=== PATIENT | male | born 1975 ===

== ENCOUNTER 2023-01-29 22:45 | Emergency (ER) | payer MEDICAID, SELFPAY ==
[2023-01-29 22:55] VITALS: BP 132/83; PULSE 66; RESP 20; TEMP 36.8; O2SAT 97; BMI 26.6
[2023-01-29 23:10] LABS: MANUAL DIFF FLAG NO
[2023-01-29 23:12] LABS: Basophils Percent Auto 0.3 % (0-2); Eosinophils Absolute Auto 0.1 X10*3/uL (0.0-0.4); Eosinophils Percent Auto 1.3 % (0-4); Hematocrit 40.4 % (42.0-52.0); Hemoglobin 13.4 g/dl (14.0-18.0); Imm Gran Abs Auto 0.05 X10*3/uL (0.00-0.03); Imm Gran Pct Auto 0.5 % (0.0-0.4); Lymphocytes Percent Auto 18.9 % (20-40); Mean Corpuscular HGB Conc 33.2 g/dl (31.0-36.0); Mean Corpuscular Hemoglobin 29.7 pg (27.0-33.0); Mean Corpuscular Volume 89.6 fL (80.0-98.0); Mean Platelet Volume 8.6 fL (9.4-12.4); Monocytes Absolute Auto 0.8 X10*3/uL (0.1-1.2); Monocytes Percent Auto 7.7 % (2-11); Neutrophils Absolute Auto 7.4 x10*3/uL (2.0-8.3); Neutrophils Percent Auto 71.3 % (45-73); Platelet Count 202 X10*3/uL (160-400); Red Blood Count 4.51 X10*6/uL (4.60-5.80); Red Cell Distribution Width 13.2 % (11.0-16.0); White Blood Count 10.4 X10*3/uL (4.8-10.8)
[2023-01-29 23:23] LABS: IDNOW Serial# 08D9AD1C; Strep A Nucleic Acid Negative (Negative)
[2023-01-29 23:25] LABS: Anion Gap 12 (12-20); Blood Urea Nitrogen 16 mg/dL (9-16); Carbon Dioxide 25 mmol/L (22-29); Chloride 106 mmol/L (96-108); Creatinine Clr Calc Pharmacy 102.7; Estimated Glomerular Filt Rate > 60; Glucose Random 122 mg/dL (60-115); Potassium 3.7 mmol/L (3.3-5.1); Sodium 139 mmol/L (135-145)
[2023-01-29 23:36] LABS: COVID-19 Test Negative (Negative); IDNOW Serial# BCCEAD1C
--- NOTE | 2023-01-30 01:26 | ED_ITS ---
HPI - General Adult General Chief complaint: General Medical Stated complaint: coughing/sore throat Time Seen by Provider: 01/30/23 01:25 Source: patient and family Mode of arrival: ambulatory Limitations: language barrier (French speaking only, iPad japanese interpreter used) History of Present Illness HPI narrative: 47-year-old male who presents emergency department for evaluation of sore throat, subjective fever, chills, nonproductive cough, shortness of breath, and gagging with difficulty swallowing. The patient states that he has been sick since yesterday. He states that he feels like whenever he swallows a something in the back of his throat that causes him to choke and gag. He had subjective fever and chills. He is weak, tired and fatigued. He feels short of breath but denied dyspnea on exertion . He has a headache and body aches. He did not take any medications for symptoms. Related Data Previous Rx's Medication Instructions Recorded acetaminophen 500 mg tablet 500 mg PO Q6H PRN fever or pain 01/30/23 (Tylenol Extra Strength) #30 tabs prednisone 20 mg tablet 60 mg PO DAILY 5 days #15 tabs 01/30/23 Allergies Allergy/AdvReac Type Severity Reaction Status Date / Time No Known Allergies Allergy Verified 01/30/23 01:47 Review of Systems Review of Systems: Yes all other systems are reviewed and are negative [facility] Past Medical History [facility] Narrative: Past medical history: None. Past surgical history: Patient denies tobacco use. He occasionally drinks alcohol. He denies drug use. Physical Exam ED Vital Signs: Vital Signs - 24 hr 01/29/23 22:55 Temperature 98.2 F Pulse Rate 66 Respiratory Rate 20 Blood Pressure 132/83 Pulse Oximetry 97 Oxygen Delivery Method Room Air BMI result Body Mass Index 26.6 Const Other: Awake, alert, male patient, pleasant, cooperative. Does cough which causes him to gag. HENMT Head: Yes normal to inspection, Yes normocephalic and Yes atraumatic Ears: external ears normal General nose exam: Normal external nose present Face and sinus: Yes normal facial exam Mouth: lip normal, tongue normal, moist mucous membranes, no trismus and other (Uvula is long and thick, hangs down to just below his tongue) Throat: Yes posterior oropharynx normal Eyes General: appearance normal, both eyes and all related structures Neck Neck: Yes normal visual inspection, Yes no lymphadenopathy, Yes trachea midline and Yes supple Chest Chest palpation & inspection: normal inspection of the chest and normal palpation of entire chest wall Resp Effort & Inspection: normal respiratory effort and able to speak in complete sentences Auscultation: clear to auscultation bilaterally Cardio Rate: regular rate Rhythm: regular rhythm Heart sounds: S1 normal heart sound present, S2 normal heart sound present and no murmurs GI Inspection: Yes normal to inspection Palpation (GI): Soft to palpation, nontender and no guarding Auscultation: normal bowel sounds General: Yes no CVA tenderness Back/Spine/Pelvis Back: no CVA tenderness Skin General skin exam: no rashes or lesions noted Neuro Cognition (Neuro): normal cognition Motor exam (neuro): 5/5 motor strength present throughout Extrem General: Yes normal to inspection Psych Appearance: grossly normal Speech and movement: Normal speech and movement present Affect: normal affect Attitude: cooperative Medical Decision Making Medical Decision Making MDM Narrative: 47-year-old male who presents emergency department with viral-like illness x2 days with symptoms including subjective fever, chills, sore throat, nonproductive cough,, fatigue, myalgias, gagging when he coughs and swallows. Vital signs were normal. Examination did reveal a elongated and thick uvula consistent with uvulitis. Laboratory evaluation revealed a normal CBC and CMP. The patient's rapid strep was negative. The patient's COVID-19 was negative. I did discuss uvulitis and viral syndromes with the patient and the patient's family member. The patient was given prednisone 60 mg orally and Tylenol 650 mg orally here in the emergency department the. The patient was given a prescription for prednisone 60 mg once a day for 5 days. He was also advised to take Tylenol 1000 mg every 6 hours as needed for pain and fever. He was given printed and verbal instructions and discharged home. Lab Data 01/29/23 23:06 01/29/23 23:06 Labs: Lab Results 01/29/23 01/29/23 01/29/23 Range/Units 23:06 23:06 23:06 WBC 10.4 (4.8-10.8) X10*3/uL RBC 4.51 L (4.60-5.80) X10*6/uL Hgb 13.4 L (14.0-18.0) g/dl Hct 40.4 L (42.0-52.0) % MCV 89.6 (80.0-98.0) fL MCH 29.7 (27.0-33.0) pg MCHC 33.2 (31.0-36.0) g/dl RDW 13.2 (11.0-16.0) % Plt Count 202 (160-400) X10*3/uL MPV 8.6 L (9.4-12.4) fL Immature Gran % (Auto) 0.5 H (0.0-0.4) % Neut % (Auto) 71.3 (45-73) % Lymph % (Auto) 18.9 L (20-40) % Zavala % (Auto) 7.7 (2-11) % Eos % (Auto) 1.3 (0-4) % Baso % (Auto) 0.3 (0-2) % Lymph # (Auto) 2.0 (1.2-4.9) X10*3/uL Zavala # (Auto) 0.8 (0.1-1.2) X10*3/uL Eos # (Auto) 0.1 (0.0-0.4) X10*3/uL Baso # (Auto) 0.0 (0.0-0.2) X10*3/uL Abs Immat Gran (auto) 0.05 H (0.00-0.03) X10*3/uL Absolute Neuts (auto) 7.4 (2.0-8.3) x10*3/uL Absolute Nucleated RBC 0.000 (0.0-0.012) X10*3/uL Nucleated RBC % (auto) 0.0 (0.0-0.2) /100WBC Sodium (135-145) mmol/L Potassium (3.3-5.1) mmol/L Chloride (96-108) mmol/L Carbon Dioxide (22-29) mmol/L Anion Gap (12-20) BUN (9-16) mg/dL Creatinine (0.5-1.4) mg/dL Estim Creat Clear Calc Estimated GFR Random Glucose (60-115) mg/dL Calcium (8.4-10.2) mg/dL COVID-19 (ANTHONY) Negative (Negative) COVID-19 Clin Com See Note S. pyogenes GrpA GREG Negative (Negative) 01/29/23 Range/Units 23:06 WBC (4.8-10.8) X10*3/uL RBC (4.60-5.80) X10*6/uL Hgb (14.0-18.0) g/dl Hct (42.0-52.0) % MCV (80.0-98.0) fL MCH (27.0-33.0) pg MCHC (31.0-36.0) g/dl RDW (11.0-16.0) % Plt Count (160-400) X10*3/uL MPV (9.4-12.4) fL Immature Gran % (Auto) (0.0-0.4) % Neut % (Auto) (45-73) % Lymph % (Auto) (20-40) % Zavala % (Auto) (2-11) % Eos % (Auto) (0-4) % Baso % (Auto) (0-2) % Lymph # (Auto) (1.2-4.9) X10*3/uL Zavala # (Auto) (0.1-1.2) X10*3/uL Eos # (Auto) (0.0-0.4) X10*3/uL Baso # (Auto) (0.0-0.2) X10*3/uL Abs Immat Gran (auto) (0.00-0.03) X10*3/uL Absolute Neuts (auto) (2.0-8.3) x10*3/uL Absolute Nucleated RBC (0.0-0.012) X10*3/uL Nucleated RBC % (auto) (0.0-0.2) /100WBC Sodium 139 (135-145) mmol/L Potassium 3.7 (3.3-5.1) mmol/L Chloride 106 (96-108) mmol/L Carbon Dioxide 25 (22-29) mmol/L Anion Gap 12 (12-20) BUN 16 (9-16) mg/dL Creatinine 0.76 (0.5-1.4) mg/dL Estim Creat Clear Calc 102.7 Estimated GFR > 60 Random Glucose 122 H (60-115) mg/dL Calcium 9.0 (8.4-10.2) mg/dL COVID-19 (ANTHONY) (Negative) COVID-19 Clin Com S. pyogenes GrpA GREG (Negative) Discharge Plan Discharge Clinical Impression: Viral syndrome, Uvulitis Patient Disposition: Home, Self-Care Instructions: Uvulitis (ED), Viral Syndrome (ED) Additional Instructions: Your blood work was normal. Your COVID-19 test was negative. Your rapid strep test for strep throat was negative. Your examination revealed a long and wide uvula which is consistent with inflammation of the uvula (uvulitis). This is caused by a viral infection. Take prednisone 20 mg pills, 3 pills once a day for 5 days. While you are taking prednisone, do not take any NSAIDs (Motrin, Advil, ibuprofen, Aleve, naproxen). Take Tylenol (acetaminophen) 500 mg pills, 2 pills every 6 hours as needed for pain. Follow-up with your doctor in 2 days. Please return to the emergency department if your symptoms get worse or if you develop any symptoms that are concerning to you. Prescriptions: New prednisone 20 mg tablet 60 mg PO DAILY 5 Days Qty: 15 0RF acetaminophen [Tylenol Extra Strength] 500 mg tablet 500 mg PO Q6H PRN (Reason: fever or pain) Qty: 30 0RF Print Language: French
[2023-01-30 02:09] VITALS: BP 116/76; PULSE 62; RESP 18; TEMP 36.6; O2SAT 98
[2023-01-30] MEDS: Acetaminophen 325 MG TABLET 650 MG PO (02:26)
[2023-01-30] MEDS: predniSONE 20 MG TABLET 60 MG PO (02:26)
== END 2023-01-30 02:31 | disposition home or self-care (01) ==
PROVIDERS: Emergency Provider Emergency Medicine Emergency Medical Services
DX: K12.2 Cellulitis and abscess of mouth (principal); J02.9 Acute pharyngitis, unspecified; B34.9 Viral infection, unspecified; R05.9 Cough, unspecified; Z20.822 Contact with and (suspected) exposure to COVID-19; Z20.828 Contact with and (suspected) exposure to other viral communicable diseases; Z79.899 Other long term (current) drug therapy
CPT/HCPCS: 36415; 80048; 85025; 87635; 87651; 99283

== ENCOUNTER 2023-03-14 13:21 | Emergency (ER) | payer OTHER, SELFPAY ==
--- NOTE | ~2023-03-14 | XR_ITS ---
EXAMINATION: XR HIP, RIGHT CLINICAL INFORMATION: Increasing hip pain COMPARISON: None available. TECHNIQUE: 2 views of the right hip and single view pelvis of the right hip. FINDINGS: The pelvic image demonstrates abnormality in the right femoral head/right hip. The left femoral head contour is within normal limits on this single image. The SI joints are grossly patent. Detailed imaging of the right hip demonstrates abnormal appearance to the right hip. Abnormal femoral head contour and significant near complete joint space loss mid and inferior and posterior. Sclerosis and lucency in the region may represent sequela of degeneration and geode formation. Underlying chronic infection cannot be excluded. XR/XR hip RT w PEL1V IMPRESSION: Markedly abnormal right hip may be severe degeneration. Cannot exclude sequela of chronic infection or possibly osteonecrosis. Correlation recommended clinically. Recommend MRI to fully evaluate.
[2023-03-14 13:25] VITALS: BP 132/97; PULSE 66; RESP 19; TEMP 36.4; O2SAT 98; BMI 40.6
[2023-03-14 13:41] VITALS: BP 126/77; PULSE 64; RESP 16; O2SAT 96
[2023-03-14] MEDS: Acetaminophen 325 MG TABLET 975 MG PO (14:25)
[2023-03-14] MEDS: Ketorolac Tromethamine 15 MG/ML VIAL IM (14:25)
[2023-03-14] MEDS: Lidocaine 4 % Patch ADH..PATCH 1 PATCH TRANSDERMA (14:25)
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
== END 2023-03-14 16:55 | disposition home or self-care (01) ==
PROVIDERS: Emergency Provider Student in an Organized Health Care Education/Training Program
DX: M16.11 Unilateral primary osteoarthritis, right hip (principal); M25.551 Pain in right hip
CPT/HCPCS: 73502; 99284; J1885

== ENCOUNTER → 2023-03-15 10:22 | Outpatient (BNVA) | payer OTHER, SELFPAY | PROVIDERS: Visit Provider Orthopaedic Surgery | DX: M87.051 Idiopathic aseptic necrosis of right femur (principal) | CPT/HCPCS: 99202 ==

== ENCOUNTER → 2023-04-04 09:42 | Outpatient (BNVA) | payer OTHER, SELFPAY | PROVIDERS: Visit Provider Orthopaedic Surgery | DX: M87.051 Idiopathic aseptic necrosis of right femur (principal) | CPT/HCPCS: 99212 ==

== ENCOUNTER 2023-04-17 14:58 | Outpatient (REF) | payer OTHER, SELFPAY ==
--- NOTE | ~2023-04-17 | MR_ITS ---
EXAMINATION: MR HIP WITHOUT CONTRAST, RIGHT CLINICAL INFORMATION: Osteoarthritis. Avascular necrosis. COMPARISON: Radiograph dated 03/14/2023. TECHNIQUE: MRI of the right hip was obtained using routine sequences on a high-field strength magnet. FINDINGS: LABRUM/CAPSULE: There is degeneration of the anterior labrum with intermediate increased intrasubstance signal and fraying. No discrete tears are identified. BONES AND ARTICULAR CARTILAGE: There is moderate to high-grade cartilage loss at the acetabulum anteriorly and medially and at the femoral head anterosuperiorly, associated with cortical irregularity, subcortical cystic change, and subcortical edema. Marginal osteophytes are noted. No evidence of avascular necrosis. Abnormal cortical and trabecular morphology at the medial aspect of the humeral head are of uncertain etiology, potentially the result of an old healed fracture or developmental variation. No aggressive osseous lesions. Pubic symphysis and SI joints are unremarkable. No acute osseous findings. MUSCLES AND TENDONS: Musculature is normal in signal intensity without atrophy or edema signal. Tendons appear intact. No tears or tendinosis. JOINT FLUID AND BURSAE: No effusion or bursitis. LIGAMENTUM TERES: Intact. INTRAPELVIC SOFT TISSUES: No acute intrapelvic findings. No adenopathy. MR/MR hip RT wo con IMPRESSION: Moderate osteoarthritis in the right hip with degeneration of the anterior labrum. No evidence of avascular necrosis. Abnormal cortical and trabecular morphology at the inferomedial aspect of the humeral head could be due to remote trauma or developmental variation.
== END 2023-04-17 14:59 | disposition home or self-care (01) ==
LOC: HO.MRI 14:58
PROVIDERS: Visit Provider Orthopaedic Surgery
DX: M16.11 Unilateral primary osteoarthritis, right hip (principal); M87.051 Idiopathic aseptic necrosis of right femur
CPT/HCPCS: 73721

== ENCOUNTER → 2023-05-21 09:58 | Outpatient (BNVA) | payer OTHER, SELFPAY | PROVIDERS: Visit Provider Orthopaedic Surgery ==

== ENCOUNTER → 2023-06-17 13:22 | Outpatient (BNV) | payer OTHER, SELFPAY | PROVIDERS: Admitting Provider Orthopaedic Surgery; Visit Provider Internal Medicine Cardiovascular Disease | DX: Z01.818 Encounter for other preprocedural examination (principal) | CPT/HCPCS: 93010 ==

== ENCOUNTER 2023-06-21 10:00 | Outpatient (RCR) | payer OTHER, SELFPAY ==
--- NOTE | 2023-06-14 10:06 | MHC.PT.EP ---
[facility] [place] [facility] [place] [facility] [place] Office [address] [place] [address] [phone] F: [phone] F: [phone] F: [phone] F: [phone] Physical Therapy Plan of Care Date of Evaluation: Date of Surgery: 06/25/23 Diagnosis: prehab for R LOLI on 07/02 (RL) Assessment: pt is a 53 y/o female presenting to physical therapy w/ referring diagnosis of prehab for RT LOLI 07/02. Impairments include pain, decreased range of motion, decreased strength, impaired functional mobility, impaired postural awareness, and altered ambulation mechanics. pt is a good candidate for skilled PT due to age, potential remediation of impairments, typical disease/condition progression and prognosis, comorbidities, and motivation. pt would benefit from skilled PT intervention to provide a tailored strengthening and stretching exercise program, functional training, gait training, postural re-training, neuromuscular re-education, modalities as needed for pain, equipment safety demonstration. Frequency and Duration: The patient will be seen 2-3 visits Short Term Goals: pt will demo mod I w/ step to gait pattern w/ walker. pt will demo mod I w/ ascending/descending stairs w/ step to pattern and correct LE 10-12 steps. [employer] Goals: pt will demo bed mobility being mindful of posterior hip precautions mod I level. pt will be I w/ HEP to promote self-management of future post-operative status. Treatment Plan: Modalities to reduce pain, spasms and effusion. Manual therapy to restore motion and function. Therapeutic exercise to improve strength and flexibility. Neuromuscular re-education for posture and balance. Therapeutic activities to return to functional activities of daily living. Electronically signed by: Kayla Marion PT, DPT Please sign and return to therapist. Thank you for your referral.
--- NOTE | 2023-06-26 15:23 | MHC.PT.DC ---
[facility] [place] Office [place] Office [place] Office [address] Galindo Cruz [address] [facility] [phone] F: [phone] F: [phone] F: [phone] F: [phone] Physical Therapy Discharge Report Diagnosis: prehab for R LOLI on 07/02 (RL) Date of Surgery: 06/25/23 Date of Evaluation: 06/14/23 Date of Discharge: 06/26/23 Treatments to Date: 3 Cancellations to Date: 1 No Shows to Date: 0 Discharge Status: Independent with HEP Discharge Summary: The patient completed his LOLI prehab plan of care. Electronically signed by: Kayla Marion PT, DPT Please sign and return to therapist. Thank you for your referral.
== END 2023-06-26 15:23 | disposition home or self-care (01) ==
LOC: HO.PT 10:00
PROVIDERS: Visit Provider Orthopaedic Surgery
DX: M87.051 Idiopathic aseptic necrosis of right femur (principal)
CPT/HCPCS: 97110; 97116; 97161

== ENCOUNTER 2023-06-21 11:03 | Outpatient (AMB) | payer OTHER, SELFPAY ==
--- NOTE | 2023-06-21 11:20 | A.OFFVIS_ITS ---
Intake Intake Visit Reasons: Preop RT LOLI 06/25/23 NE Allergies No Known Allergies Allergy (Verified 01/30/23 01:47) HPI Preop RT LOLI 06/25/23 NE HPI Details Jovany Vargas is a 47-year-old Italian speaking male who returns with right hip arthralgia. He presents for his preoperative history and physical exam to discuss the right total hip arthroplasty, to be performed on 06/25/2023. [facility] Medical History No pertinent past medical history Surgical History History of surgery on left wrist Hx of appendectomy Social History Household Members: Other Housing: Apartment Are you a primary hearing care professional to a significant other at home: No Do you presently have visiting nurse or other home services: No Alcohol intake: never Patient Tobacco Use Status: Never used Tobacco Second Hand Smoke Exposure: No service: No Review of Systems Const All systems reviewed & are unremarkable except as noted in HPI and below Physical Exam Const General: cooperative, healthy appearing and no acute distress Orientation/consciousness: patient oriented x3 Resp Effort & Inspection: normal respiratory effort and able to speak in complete sentences Cardio Rate: regular rate Peripheral pulses: Peripheral pulses 2+ throughout GI Palpation (GI): Soft to palpation Skin General skin exam: no rashes or lesions noted Lesions: no lesions Rashes: no rashes Neuro General: patient oriented x3 Extrem Other: Right hip: Antalgic gait. Positive impingement. Positive Stinchfield test. Results Reviewed Results Reviewed: I personally reviewed relevant radiographs. MR HIP WITHOUT CONTRAST, RIGHT CLINICAL INFORMATION: Osteoarthritis. Avascular necrosis. COMPARISON: Radiograph dated 03/14/2023. ? TECHNIQUE: MRI of the right hip was obtained using routine sequences on a high-field strength magnet. FINDINGS: LABRUM/CAPSULE: There is degeneration of the anterior labrum with intermediate increased intrasubstance signal and fraying. No discrete tears are identified. BONES AND ARTICULAR CARTILAGE: There is moderate to high-grade cartilage loss at the acetabulum anteriorly and medially and at the femoral head anterosuperiorly, associated with cortical irregularity, subcortical cystic change, and subcortical edema. Marginal osteophytes are noted. No evidence of avascular necrosis. Abnormal cortical and trabecular morphology at the medial aspect of the humeral head are of uncertain etiology, potentially the result of an old healed fracture or developmental variation. No aggressive osseous lesions. Pubic symphysis and SI joints are unremarkable. No acute osseous findings. MUSCLES AND TENDONS: Musculature is normal in signal intensity without atrophy or edema signal. Tendons appear intact. No tears or tendinosis. JOINT FLUID AND BURSAE: No effusion or bursitis. LIGAMENTUM TERES: Intact. INTRAPELVIC SOFT TISSUES: No acute intrapelvic findings. No adenopathy. MR/MR hip RT wo con IMPRESSION: Moderate osteoarthritis in the right hip with degeneration of the anterior labrum. No evidence of avascular necrosis. Abnormal cortical and trabecular morphology at the inferomedial aspect of the humeral head could be due to remote trauma or developmental variation. Assessment & Plan Assessment & Plan (1) Avascular necrosis of bone of right hip: Code(s): M87.051 - Idiopathic aseptic necrosis of right femur Plan: He feels limited in their ADLs and that their QOL is diminished. I recommend a right total hip arthroplasty. I discussed the risks, benefits, and alternatives including, but not limited to, the risk of pain, infection, stiffness, need for further surgery as well as potential medical complications such as blood clots, pulmonary embolism and cardiac complications. I discussed the recovery timeline and process as well as the importance of PT. He is a good candidate for this surgery, and he/she wishes to proceed with this decision. Follow up with at his post operative appointment, or sooner if needed. Patient Instructions: Scribed for Dr. Ifeanyi Hayden by Madeline Griffith, medical officer psychiatry, on 06/11/2023 at 11:20 am, EST. Coding Level of Care Code Global (39975) Diagnoses Avascular necrosis of bone of right hip M87.051
== END 2023-06-21 11:45 | disposition home or self-care (01) ==
PROVIDERS: Visit Provider Orthopaedic Surgery
DX: M87.051 Idiopathic aseptic necrosis of right femur (principal)
CPT/HCPCS: 99024

== ENCOUNTER → 2023-06-21 11:03 | Outpatient (BNVA) | payer OTHER, SELFPAY | PROVIDERS: Visit Provider Orthopaedic Surgery ==

== ENCOUNTER 2023-06-25 06:07 | Inpatient (IN) | payer OTHER, SELFPAY ==
--- NOTE | 2023-06-17 | ECG_ITS ---
Test Reason : PREOP Blood Pressure : / mmHG Vent. Rate : 067 BPM Atrial Rate : 067 BPM P-R Int : 184 ms QRS Dur : 118 ms QT Int : 398 ms P-R-T Axes : 043 -05 004 degrees QTc Int : 420 ms Normal sinus rhythm Normal ECG No previous ECGs available Referred By: Sheeba Hyman Electronically Signed By:LE MENJIVAR MD
[2023-06-17 07:37] VITALS: BMI 40.6
[2023-06-17 12:15] VITALS: BMI 29.6
[2023-06-17 12:26] VITALS: BP 137/81; PULSE 55; RESP 16; O2SAT 98
--- NOTE | 2023-06-17 12:45 | P.CONAN_ITS ---
Documented by User: Sheeba Hyman NP 06/17/23 14:36 HPI - Anesthesia Eval Consult details Narrative: 47yo M for Right Hip Total Replacement Otherwise healthy No recent illness No CP/SOB with >4mets PMFSH Active Problems Active Problems: All Active Problems (Updated 06/17/23 @ 12:09 by Abi Ellis RN) Osteoarthritis of right hip (Acute) Avascular necrosis of bone of right hip (Acute) Past Medical History Medical History (Updated 06/17/23 @ 12:09 by Abi Ellis RN) No pertinent past medical history Surgical History Surgical History (Updated 06/17/23 @ 12:36 by Abi Ellis RN) History of surgery on left wrist Hx of appendectomy Social History Social History Household Members: Other Housing: Apartment Are you a primary director of patient care to a significant other at home: No Do you presently have visiting nurse or other home services: No Alcohol intake: never Patient Tobacco Use Status: Never used Tobacco Smoked in Last 30 Days: No Patient Interested in Nicotine Replacement: No Patient Given Instructions on How to Stop Smoking: No Second Hand Smoke Exposure: No Use of substances other than those prescribed or required for medical reasons: No Currently Displaying Signs/Symptoms of Drug Intoxication Withdrawal: No Any prior treatment program specific to substance use: No Have you been hit, kicked, punched, or otherwise hurt by someone within the past year? If so, by whom?: No Do you feel safe in your current relationship?: Yes Is there a partner from a previous relationship who is making you feel unsafe now?: No Are you made to feel afraid or neglected: No Are you DNR?: No Advance Directives: No Advance Directives Information Provided: No Advance Directives on File: No Do you have thoughts of harming others: None Do you have a plan to hurt others: No Plan Recently lost weight without trying: No Eating poorly because of decreased appetite: No Nutrition Risks: No Nutritional Risk Poor oral hygiene: No Meds Allergies Allergy/AdvReac Type Severity Reaction Status Date / Time No Known Allergies Allergy Verified 01/30/23 01:47 Exam Exam Date and Time: June 17, 2023 1245 Height,Weight and Vital Signs: Height 5 ft 1 in Weight 80.739 kg Last Vital Signs Pulse 55 06/17/23 12:26 Resp 16 06/17/23 12:26 BP 137/81 06/17/23 12:26 Pulse Ox 98 06/17/23 12:26 O2 Del Method Room Air 06/17/23 12:26 Airway Mallampati Class: III TM Dist: >3cm Neck ROM: Full Loose/Missing/Broken Teeth: No (crowned front upper teeth) Heart: RRR Lungs: CTAB Assessment and Plan Assessment Anesthesia Assessment: Anesthesia Plan Discussed and PAT Visit Documented by User: Jean Banks MD 06/25/23 17:41 REPLACED BY [facility] Past Medical History Medical History (Updated 06/17/23 @ 12:09 by Abi Ellis RN) No pertinent past medical history Functional capacity: independent ambulation Family History Family history of problems with anesthesia: No Surgical History Surgical History (Updated 06/17/23 @ 12:36 by Abi Ellis RN) History of surgery on left wrist Hx of appendectomy History of Problems with Anesthesia: No Social History Social History Household Members: Other Housing: Apartment Are you a primary director of patient care to a significant other at home: No Do you presently have visiting nurse or other home services: No Alcohol intake: never Patient Tobacco Use Status: Never used Tobacco Smoked in Last 30 Days: No Patient Interested in Nicotine Replacement: No Patient Given Instructions on How to Stop Smoking: No Second Hand Smoke Exposure: No Use of substances other than those prescribed or required for medical reasons: No Currently Displaying Signs/Symptoms of Drug Intoxication Withdrawal: No Any prior treatment program specific to substance use: No Have you been hit, kicked, punched, or otherwise hurt by someone within the past year? If so, by whom?: No Do you feel safe in your current relationship?: Yes Is there a partner from a previous relationship who is making you feel unsafe now?: No Are you made to feel afraid or neglected: No Are you DNR?: No Advance Directives: No Advance Directives Information Provided: No Advance Directives on File: No Do you have thoughts of harming others: None Do you have a plan to hurt others: No Plan Recently lost weight without trying: No Eating poorly because of decreased appetite: No Nutrition Risks: No Nutritional Risk Poor oral hygiene: No Meds Allergies Allergy/AdvReac Type Severity Reaction Status Date / Time No Known Allergies Allergy Verified 01/30/23 01:47 Exam Airway Loose/Missing/Broken Teeth: Yes (left molar chipped , crowns ) Assessment and Plan Final Anesthetic Review Family History of Problems with Anesthesia: No History of Problems with Anesthesia: No NPO: Yes ASA Class: II Final Preanesthetic Review: Meds/Allgs Chart Reviewed, Consent Obtained/Reviewed and Anes Risks/Benef Reviewed Patient Risk: Intermediate Procedure Risk: Intermediate Anesthetic Plan Anesthetic Plan: GA Disposition: Standard PACU
[2023-06-17 14:21] LABS: Hematocrit 46.8 % (42.0-52.0); Hemoglobin 15.3 g/dl (14.0-18.0); Mean Corpuscular HGB Conc 32.7 g/dl (31.0-36.0); Mean Corpuscular Hemoglobin 29.7 pg (27.0-33.0); Mean Corpuscular Volume 90.9 fL (80.0-98.0); Mean Platelet Volume 9.2 fL (9.4-12.4); Platelet Count 236 X10*3/uL (160-400); Red Blood Count 5.15 X10*6/uL (4.60-5.80); Red Cell Distribution Width 13.5 % (11.0-16.0); White Blood Count 9.8 X10*3/uL (4.8-10.8)
[2023-06-17 17:03] LABS: MRSA Nasal PCR NEGATIVE (Negative); SA Nasal PCR POSITIVE (Negative)
[2023-06-18 01:38] LABS: Anion Gap 12 (12-20); Blood Urea Nitrogen 13 mg/dL (9-16); Calcium 9.1 mg/dL (8.4-10.2); Carbon Dioxide 25 mmol/L (22-29); Chloride 106 mmol/L (96-108); Creatinine Clr Calc Pharmacy 107.7; Estimated Glomerular Filt Rate > 60; Glucose Random 88 mg/dL (60-115); Potassium 3.7 mmol/L (3.3-5.1); Sodium 139 mmol/L (135-145)
[2023-06-25] VITALS (10 sets, daily range): BP systolic 104–147; BP diastolic 63–92; PULSE 60–94; RESP 16–20; TEMP 36–36.3; O2SAT 95–100; BMI 31.7; BMI 37.8
--- NOTE | ~2023-06-25 | XR_ITS ---
EXAMINATION: XR PELVIS CLINICAL INFORMATION: Right hip replacement COMPARISON: Previous x-ray March 2023 TECHNIQUE: AP view of the pelvis. FINDINGS: There is a new right hip replacement in satisfactory position. No fracture or dislocation. Postsurgical changes to the soft tissues. XR/XR pelvis 1-2V IMPRESSION: Satisfactory appearance of right hip replacement.
[2023-06-25] MEDS: oxyCODONE HCl ER 10 MG TAB.ER.12H PO ×3 (06:35→21:32)
[2023-06-25] MEDS: Lactated Ringers 1,000 ML 100 ML IVCONT ×3 (06:59→21:20)
--- NOTE | 2023-06-25 07:24 | MHC.SHP ---
Pre-Procedural Eval Section A Date of Service: 06/25/23 The patient is an INPATIENT: No Changes since office visit: No Cold of Flu in the past 2 weeks, No New Medical Problems, No Changes in Medication and No Patient answered all questions The History & Physical has been completed within 30 days and I have reviewed it.: Yes Section B Chief Complaint: RT LOLI Allergies: Allergies Allergy/AdvReac Type Severity Reaction Status Date / Time No Known Allergies Allergy Verified 01/30/23 01:47 Plan I have reviewed the history and physical and performed a pertinent physical examination on my patient. No changes have occurred unless specified. Time Spent With Patient Time: Total time managing care of this patient today ____ minutes.
--- NOTE | 2023-06-25 08:26 | PHA.MEDREC ---
Pharmacy Consult ? Medication Reconciliation Pharmacy has completed the medication reconciliation.
--- NOTE | 2023-06-25 11:30 | PC.NURSE ---
[place] from pricing analyst services utilize to do admission data
--- NOTE | 2023-06-25 11:45 | PM.EVENT ---
Event Note Date of Service: 06/25/23 Event Note: [age] year male without any significant past medical history admitted to Orthopedic surgery for management of avascular necrosis of the right hip with consult placed to hospitalist service for medical management. The patient has no medical history and is not prescribed any medications. He feels he is doing well, pain is reasonably controlled. Vital signs are stable and he is being weaned from supplemental O2 currently maintaining oximetry 100%. Lungs are clear to auscultation bilaterally, heart has regular rate and rhythm with normal S1-S2. He has no complaints at this time. He has only an occasional alcohol drinker and reports smoking 1 cigarette per year. Advised against this. No illicit drug use. Thank you for allowing me to participate in this consult. Signing off at this time. Please do not hesitate to call for further questions. Time Spent With Patient Time: Total time managing care of this patient today ____ minutes.
[2023-06-25] MEDS: Docusate Sodium 100 MG CAPSULE PO ×2 (11:46→21:32)
[2023-06-25] MEDS: Celecoxib 200 MG CAPSULE PO ×2 (11:46→21:32)
[2023-06-25] MEDS: 0.9 % Sodium Chloride Flush 3 ML SYRINGE IVFLUSH (11:49)
--- NOTE | 2023-06-25 12:10 | PM.OP ---
Brief Operative Note Date of Service: 06/25/23 Pre-op diagnosis: Right hip OA Post-op diagnosis: same Procedure: Right LOLI Implants: [place] Trident2 52/lip liner Stdimitris Acckimde2 # 4 127 deg with - 2.5 head, ceramic Surgeon: Ifeanyi Hayden MD Anesthesia: GETA Was an Solution Consultant used for this Procedure?: Yes Solution Consultant: Xi Orourke Estimated blood loss (mL): 200 IV fluids (mL): 1,000 Pathology: other Condition: stable Disposition: PACU
[2023-06-25] MEDS: ceFAZolin Sodium/Dextrose,Iso 2 GM/50 ML PIGGYBACK IV (13:44)
[2023-06-25] MEDS: HYDROmorphone HCl 0.5 MG/0.5 ML SYRINGE 0.25 MG IVPUSH (19:40)
[2023-06-26 03:10] VITALS: BP 95/56; PULSE 75; RESP 18; TEMP 36.6; O2SAT 97
[2023-06-26 03:36] VITALS: BP 104/62
[2023-06-26 05:56] LABS: MANUAL DIFF FLAG NO
[2023-06-26 05:59] LABS: Basophils Percent Auto 0.2 % (0-2); Eosinophils Percent Auto 0.1 % (0-4); Hematocrit 36.9 % (42.0-52.0); Hemoglobin 12.1 g/dl (14.0-18.0); Imm Gran Abs Auto 0.08 X10*3/uL (0.00-0.03); Imm Gran Pct Auto 0.5 % (0.0-0.4); Lymphocytes Absolute Auto 1.7 X10*3/uL (1.2-4.9); Lymphocytes Percent Auto 11.3 % (20-40); Mean Corpuscular HGB Conc 32.8 g/dl (31.0-36.0); Mean Corpuscular Hemoglobin 29.3 pg (27.0-33.0); Mean Corpuscular Volume 89.3 fL (80.0-98.0); Mean Platelet Volume 9.4 fL (9.4-12.4); Monocytes Absolute Auto 1.4 X10*3/uL (0.1-1.2); Monocytes Percent Auto 9.3 % (2-11); Neutrophils Absolute Auto 11.8 x10*3/uL (2.0-8.3); Neutrophils Percent Auto 78.6 % (45-73); Platelet Count 201 X10*3/uL (160-400); Red Blood Count 4.13 X10*6/uL (4.60-5.80); Red Cell Distribution Width 13.3 % (11.0-16.0)
[2023-06-26 06:12] LABS: Anion Gap 10 (12-20); Blood Urea Nitrogen 14 mg/dL (9-16); Calcium 8.8 mg/dL (8.4-10.2); Carbon Dioxide 24 mmol/L (22-29); Chloride 105 mmol/L (96-108); Creatinine Clr Calc Pharmacy 122.2; Estimated Glomerular Filt Rate > 60; Glucose Fasting 120 mg/dL (60-99); Potassium 3.8 mmol/L (3.3-5.1); Sodium 135 mmol/L (135-145)
[2023-06-26] MEDS: Lactated Ringers 1,000 ML 100 ML IVCONT ×2 (06:39→16:07)
--- NOTE | 2023-06-26 07:18 | PM.PNORT ---
Subjective Subjective Date of Service: 06/26/23 Interval history: POD1 s/p RTHA. Patient is resting in bed comfortably. no overnight events. Pain is managed. No additional complaints. Physical Exam Vital Signs: Vital Signs: Last Vital Signs Temp 97.9 F 06/26/23 03:10 Pulse 75 06/26/23 03:10 Resp 18 06/26/23 03:10 BP 104/62 06/26/23 03:36 Pulse Ox 97 06/26/23 03:10 O2 Del Method Room Air 06/26/23 03:10 O2 Flow Rate 2 06/25/23 10:56 BMI result Body Mass Index 37.8 Const: General: cooperative, healthy appearing and no acute distress Resp: Effort & Inspection: normal respiratory effort and able to speak in complete sentences Cardio: Rate: regular rate Peripheral pulses: Peripheral pulses 2+ throughout GI: Palpation (GI): Soft to palpation Skin: Lesions: no lesions Rashes: no rashes Extrem: Other: Right hip Aquacel is c/d/i. Able to dorsi/plantar flex. NVI. Procedures Date of Service Date of Service: 06/26/23 Progress Note: A&P Assessment and plan (1) Status post total replacement of right hip: Status: Acute Plan Continue pain mgmnt BeginASA for dvt ppx begin PT for RTHA - Posterior precautions Dispo planning-Pending PT eval, pain mgmnt Time Spent With Patient Time: Total time managing care of this patient today ____ minutes. Quality Stroke Does the patient have a stroke diagnosis?: No VTE Prior VTE?: No VTE Risk Level:: Medical - moderate - high VTE Device Contraindication: N/A - Device Ordered VTE Drug Contraindication: N/A - Med Ordered
[2023-06-26 07:21] VITALS: BP 107/55; PULSE 69; RESP 18; TEMP 36.3; O2SAT 97
[2023-06-26] MEDS: Aspirin 325 MG TABLET PO ×2 (08:26→20:53)
[2023-06-26] MEDS: oxyCODONE HCl ER 10 MG TAB.ER.12H PO ×2 (08:27→20:53)
[2023-06-26] MEDS: Docusate Sodium 100 MG CAPSULE PO ×2 (08:28→20:54)
[2023-06-26] MEDS: Celecoxib 200 MG CAPSULE PO ×2 (08:30→20:53)
--- NOTE | 2023-06-26 09:38 | P.OP_ITS ---
Operative Note Operative Note Date of Service: 06/25/23 Narrative: Brief Operative Note Date of Service: 06/25/23 Pre-op diagnosis: Right hip OA Post-op diagnosis: same Procedure: Right LOLI Implants: [place] Trident2 52/lip liner Styraaron Acckimde2 # 4 127 deg with - 2.5 head, ceramic Surgeon: Ifeanyi Hayden MD Anesthesia: GETA Was an Project Management Analyst used for this Procedure?: Yes Project Management Analyst: Xi Orourke Estimated blood loss (mL): 200 IV fluids (mL): 1,000 Pathology: other Condition: stable Disposition: PACU Procedure in detail: Patient was brought into the operating room and placed in the right lateral decubitus position. All bony prominences were well padded and the limb was prepped and draped in standard sterile fashion. A time-out was called to identify proper site procedure proper surgeon IV antibiotics and 1 g of transaxemic acid were administered. I began by making a curvilinear incision over the posterolateral aspect of the greater trochanter. Dissection was taken down to the tensor fascia which was incised in line with the incision and a Charnley retractor was placed. Cautery was used to maintain hemostasis. The hip was internally rotated and the external rotators were identified. The vessels were cauterized and a full-thickness capsular/external rotator layer was developed starting just proximal to the piriformis. This layer was tagged and a dull Hohmann retractor was placed underneath the neck in the hip was dislocated. A neck cut was made 1 cm proximal to the lesser trochanter and the head and neck were removed and measured 48-50 mm on the back table. THe inferior portiaon of the head was defromed and osteophytic. I then removed the labrum and cauterized the fovea. I started with a 44 reamer and medialized to the inner table. I sequentially reamed up to a size 52 and impacted a 52mm cup at 45 degrees of inclination and 25 degrees of version. I then placed a 20 deg posterior lipped liner and turned my attention to the femur. I identified the piriformis insertion and used this as a starting point for my naveed cutter. The medius tendon was protected with a Hibs retractor. A Charnley awl was inserted in the canal and a curved curette used to remove the lateral bone. I irrigated copiously. I then sequentially broached in the patient's natural version to a size 5 and placed my trial implants. I used a #4/127/-2.5 based on my pre-operative template. Using a trail head I took the hip through range of motion. I was satisfied with the stability. 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 The ROM was excellent and I was satisfied that the leg lengths were equal. I removed all instrumentation and copiously irrigated. I placed my final femoral implant and again took the hip through range of motion and was satisfied with the stability and length. The final -2.5 implant was impacted in place and the hip reduced. I then irrigated for 3 minutes with iodine and placed 1 g of local transaxemic acid. I performed a capsular closure with 2.0 fiberwire, Selena's fascia with 0 Vicryl, subcuticular with 2-0 Vicryl and the skin with mulugeta. Patient was placed into a sterile dressing. Supine radiographs were taken priopr to extubation and I was satisfied with length and alignment. Patient was extubated brought to the recovery room in stable condition. There were no known complications.
[2023-06-26 09:46] VITALS: O2SAT 95
--- NOTE | 2023-06-26 13:48 | HO.POSTANES ---
Post Anesthesia Evaluation Post Anesthesia Evaluation Date of Service: 06/26/23 Vital Signs: Vital Signs Temp Pulse Resp BP Pulse Ox O2 Del Method 06/26/23 09:46 95 Room Air 06/26/23 07:21 97.4 F 69 18 107/55 L 97 Room Air 06/26/23 03:36 104/62 06/26/23 03:10 97.9 F 75 18 95/56 L 97 Room Air Anesthesia: General Mental Status: Awake Pain Control: Satisfactory Nausea/Vomiting: None Hydration: Adequate Anesthesia-Related Issues: No Anes. Related Issues
[2023-06-26 15:13] VITALS: BP 109/67; PULSE 67; RESP 20; TEMP 36.6; O2SAT 96
[2023-06-26] MEDS: 0.9 % Sodium Chloride Flush 3 ML SYRINGE IVFLUSH (16:08)
[2023-06-26] MEDS: Acetaminophen 325 MG TABLET 650 MG PO (19:24)
[2023-06-26] MEDS: oxyCODONE HCl Immed Release 5 MG TABLET PO (19:25)
[2023-06-26 19:27] VITALS: BP 113/71; PULSE 75; RESP 18; TEMP 36.8; O2SAT 96
[2023-06-27] MEDS: Lactated Ringers 1,000 ML 100 ML IVCONT (02:25)
[2023-06-27 04:00] VITALS: BP 98/50; PULSE 67; RESP 16; TEMP 36.2; O2SAT 96
[2023-06-27 06:07] LABS: MANUAL DIFF FLAG NO
[2023-06-27 06:20] LABS: Basophils Absolute Auto 0.1 X10*3/uL (0.0-0.2); Basophils Percent Auto 0.5 % (0-2); Eosinophils Absolute Auto 0.1 X10*3/uL (0.0-0.4); Eosinophils Percent Auto 1.2 % (0-4); Hematocrit 32.5 % (42.0-52.0); Hemoglobin 10.4 g/dl (14.0-18.0); Imm Gran Abs Auto 0.08 X10*3/uL (0.00-0.03); Imm Gran Pct Auto 0.8 % (0.0-0.4); Lymphocytes Absolute Auto 1.9 X10*3/uL (1.2-4.9); Lymphocytes Percent Auto 20.2 % (20-40); Mean Corpuscular Hemoglobin 29.5 pg (27.0-33.0); Mean Corpuscular Volume 92.1 fL (80.0-98.0); Mean Platelet Volume 9.4 fL (9.4-12.4); Monocytes Percent Auto 9.9 % (2-11); Neutrophils Absolute Auto 6.4 x10*3/uL (2.0-8.3); Neutrophils Percent Auto 67.4 % (45-73); Platelet Count 146 X10*3/uL (160-400); Red Blood Count 3.53 X10*6/uL (4.60-5.80); Red Cell Distribution Width 13.9 % (11.0-16.0); White Blood Count 9.6 X10*3/uL (4.8-10.8)
[2023-06-27 06:30] LABS: Anion Gap 8 (12-20); Blood Urea Nitrogen 14 mg/dL (9-16); Calcium 8.3 mg/dL (8.4-10.2); Carbon Dioxide 27 mmol/L (22-29); Chloride 105 mmol/L (96-108); Creatinine Clr Calc Pharmacy 117.4; Estimated Glomerular Filt Rate > 60; Glucose Fasting 87 mg/dL (60-99); Potassium 3.7 mmol/L (3.3-5.1); Sodium 136 mmol/L (135-145)
[2023-06-27 07:43] VITALS: BP 103/58; PULSE 73; RESP 18; TEMP 36.6; O2SAT 96
[2023-06-27] MEDS: Celecoxib 200 MG CAPSULE PO (07:44)
[2023-06-27] MEDS: Aspirin 325 MG TABLET PO (07:44)
[2023-06-27] MEDS: oxyCODONE HCl ER 10 MG TAB.ER.12H PO (07:45)
[2023-06-27] MEDS: 0.9 % Sodium Chloride Flush 3 ML SYRINGE IVFLUSH (07:45)
[2023-06-27] MEDS: Docusate Sodium 100 MG CAPSULE PO (07:46)
[2023-06-27] MEDS: HYDROmorphone HCl 0.5 MG/0.5 ML SYRINGE 0.25 MG IVPUSH (08:45)
[2023-06-27 09:00] VITALS: O2SAT 95
--- NOTE | 2023-06-27 09:21 | W.MHC.F2F ---
Service Date Service Date: 06/27/23 Encounter Date of encounter: 06/27/23 Reasons for Services Signs and symptoms assessed: Pt. is considered homebound due to recent surgery. Unable to drive, poor balance, poor gait mechanics. S/p RTHA. Reason for physical therapy: home safety and mobility, therapeutic exercises, restore joint function, gait/transfer training, assess need for DME and ADL training Reason for occupational therapy: home safety and mobility, therapeutic exercises, restore joint function, gait/transfer training, assess need for DME and ADL training Homebound: Leaving the home is medically contraindicated at this time without the asist of a device and/or another person due th the listed conditions above and below. Reason homebound: unsteady gait / fall risk, leg weakness, pain with ambulation, pain with transfers, poor balance / fall risk and unable to drive Certification: Based on the above findings, I certify that this patient is confined to the home and needs intermittent longterm care, physical therapy and/or speech therapy, or continues to need occupational therapy. The patient is under my care, and I have initiated the establishment of the plan of care. The patient will be followed by a physician who will periodically review the plan of care. Time Spent With Patient Time: Total time managing care of this patient today ____ minutes.
--- NOTE | 2023-06-27 09:22 | P.DS_ITS ---
DS: Providers Provider Date of Service: 06/27/23 Date of admission: 06/25/23 06:07 Primary care physician: Unknown Physician Consults: 06/25/23 10:56 Consult to Hospitalist Routine Comment: Consulting Provider: Hospitalist Reason For Exam: s/p RTHA - WBAT posterior precautions DS: Diagnosis Discharge Diagnosis (1) Status post total replacement of right hip: Status: Acute DS: Summary Hospital Course Hospital Course: The patient underwent a successful Right total hip arthroplasty, they were transferred to PACU and then to the floor to recover. During their stay, their vitals were stable, afebrile at 97.8. Labs were unremarkable, H/H 10.4/32.5. POD 1 they were started on Aspirin 325mg po bid for DVT ppx, they also received Physical Therapy services twice a day. Prior to discharge, their dressing was changed, incision clean dry and intact, new Aquacel dressing applied and the plan was to be discharged home with VNA services. Time Spent with Patient Time attestation: Total time managing care of this patient today ____ minutes. Discharge coordination time: Less than 30 minutes Quality: Safe Use of Opioids Does Pt have an Active Cancer Diagnosis on the Problem List?: No Quality: Stroke Does the patient have a stroke diagnosis?: No Physical Exam Vital Signs: Vital Signs: Last Vital Signs Temp 97.8 F 06/27/23 07:43 Pulse 73 06/27/23 07:43 Resp 18 06/27/23 07:43 BP 103/58 L 06/27/23 07:43 Pulse Ox 96 06/27/23 07:43 O2 Del Method Room Air 06/27/23 07:43 O2 Flow Rate 2 06/25/23 10:56 BMI result Body Mass Index 37.8 Const: General: cooperative, healthy appearing and no acute distress Resp: Effort & Inspection: normal respiratory effort and able to speak in complete sentences Cardio: Rate: regular rate Peripheral pulses: Peripheral pulses 2+ throughout GI: Palpation (GI): Soft to palpation Skin: Lesions: no lesions Rashes: no rashes Extrem: Other: Right hip Aquacel is c/d/i. Able to dorsi/plantar flex. NVI. DS: Data Data Completed and Pending Pending studies at discharge: Pending at discharge 06/25/23 09:09 Surgical [PTH] Routine Labs on day of discharge: Laboratory Results - last 24 hr 06/27/23 06/27/23 05:00 05:00 WBC 9.6 RBC 3.53 L Hgb 10.4 L Hct 32.5 L MCV 92.1 MCH 29.5 MCHC 32.0 RDW 13.9 Plt Count 146 L D MPV 9.4 Immature Gran % (Auto) 0.8 H Neut % (Auto) 67.4 Lymph % (Auto) 20.2 [place] % (Auto) 9.9 Eos % (Auto) 1.2 Baso % (Auto) 0.5 Lymph # (Auto) 1.9 [place] # (Auto) 1.0 Eos # (Auto) 0.1 Baso # (Auto) 0.1 Abs Immat Gran (auto) 0.08 H Absolute Neuts (auto) 6.4 Absolute Nucleated RBC 0.000 Nucleated RBC % (auto) 0.0 Sodium 136 Potassium 3.7 Chloride 105 Carbon Dioxide 27 Anion Gap 8 L BUN 14 Creatinine 0.76 Estim Creat Clear Calc 117.4 Estimated GFR > 60 Fasting Glucose 87 Calcium 8.3 L Discharge Plan Discharge Anticipated Discharge Date/Time: 06/27/23 15:18 Patient Disposition: Home Health Service Discharge Diagnosis: s/p RTHA Referrals: Marie Hampton PA-C [Physician Cartridge Assembling Machine Adjuster] - 07/11/23 12:30 pm Physician,Radha J [Primary Care Provider] - 1 Week Discharge Medications: New celecoxib 200 mg Capsule 200 mg PO BID 30 Days Qty: 60 0RF acetaminophen 325 mg Tablet 650 mg PO Q6H PRN (Reason: Pain, Mild (Pain Scale 1-3)) 30 Days Qty: 240 0RF aspirin 325 mg Tablet 325 mg PO BID 42 Days Qty: 84 0RF docusate sodium 100 mg Capsule 100 mg PO BID 30 Days Qty: 60 0RF oxycodone 5 mg Tablet 5 mg PO Q4H PRN (Reason: Pain, Moderate(Pain Scale 4-6)) 7 Days Qty: 42 0RF Rx Instructions: Partial Fill upon patient request. Continued (TARAN) ash Misc See Rx Instructions .MEDSUPPLY Qty: 1 0RF Rx Instructions: Folding Front wheeled walker Discontinued diclofenac sodium 50 mg tablet,delayed release (DR/EC) 50 mg PO BID Qty: 60 0RF Discharge Orders: Discharge Order (Routine); Ordered 06/27/23 Ordered By: Xi Orourke Diet: Advance to usual diet Activity on Discharge: Use cane or walker Stand Alone Forms: Patient Portal Discharge page Care Plan Goals: restore fxn to right hip Health Concerns: none Plan of Treatment: Physical Therapy for total hip arthroplasty: posterior precautions, gait training, ROM, strength Limit stair climbing No showering, no tub bath-keep dressing clean, dry and intact No driving x6 weeks Continue Lovenox tabs once a day x [address] [facility] in 2 weeks Assessment: Stable for d/c
--- NOTE | 2023-06-27 10:33 | MHC.CM.PN ---
Addendum entered by Darby Mcpherson 06/27/23 12:27: PT IS NOT ABLE TO GET A RIDE HOME. CM SPOKE WITH PT VIA EQUIPMENT RECORDS SUPERVISOR AND IS AGREEABLE TO S TRANSPORT HOME. BOOKED VIA [facility] FOR 2 PM Original Note: DP: PT HAS BEEN MEDICALLY CLEARED FOR DC HOME WITH NEW VNA SERVICES THROUGH [facility] FOR P.T. CLINICAL INFORMATION AND DC PPW FAXED PER REQUEST [facility] TO [phone]. PA AWARE. ORTHO NURSE NAVIGATOR MADE AWARE. PT HAS OWN RIDE HOME.
== END 2023-06-27 14:27 | disposition home health service (06) | DRG 324 ==
LOC: HO.SSSA 06:10 → HO.S3 08:24
PROVIDERS: Nurse Practitioner; Physician Assistant; Admitting Provider Orthopaedic Surgery; PCP Internal Medicine; Visit Provider Orthopaedic Surgery
PROC: 0SR903A Replacement of Right Hip Joint with Ceramic Synthetic Substitute, Uncemented, Open Approach (ICD-10-PCS; CPT 27130; principal; 2023-06-25 07:30)
DX: M16.11 Unilateral primary osteoarthritis, right hip (principal); Z79.899 Other long term (current) drug therapy
CPT/HCPCS: 36415; 72170; 80048; 85025; 85027; 86850; 86900; 86901; 87640; 87641; 88304; 88311; 93005; 97110; 97116; 97162; 97165; 97530; C1776; J0131; J0690; J1100; J1170; J2250; J2371; J2405; J2795; J3010

== ENCOUNTER → 2023-06-25 06:07 | Outpatient (BNV) | payer OTHER, SELFPAY | PROVIDERS: Admitting Provider Orthopaedic Surgery; Visit Provider Orthopaedic Surgery | DX: Z47.1 Aftercare following joint replacement surgery (principal); Z96.641 Presence of right artificial hip joint | CPT/HCPCS: 27130; 99024; G0180 ==

== ENCOUNTER 2023-07-11 06:40 | Outpatient (RCR) | payer OTHER, SELFPAY | END 2023-08-30 09:21 | disposition home or self-care (01) | LOC: HO.PT 06:40 | PROVIDERS: Visit Provider Physician Assistant | DX: Z96.641 Presence of right artificial hip joint (principal) ==

== ENCOUNTER 2023-07-11 11:26 | Outpatient (AMB) | payer OTHER, SELFPAY ==
--- NOTE | 2023-07-11 12:01 | MHC.OFFVIS ---
Intake Intake Visit Reasons: PO-RT LOLI 06/25/23 NE Intake Note: Didi 47 year old male who presents today for a post operative RT LOLI on 06/25/23 NE. Patient reports he is doing well, he states very little pain. Director Of Corporate Sponsorships Name: Lyndsay ID#[id number] Allergies No Known Allergies Allergy (Verified 07/11/23 12:02) HPI PO-RT LOLI 06/25/23 NE HPI Details 47-year-old male who returns to the office today for post-op right LOLI, 06/25/[address] Hayden. He continues to have minimal pain and is doing well overall. He is working with physical therapy at home. He has no other concerns today. [facility] Medical History No pertinent past medical history Surgical History Hx of appendectomy History of surgery on left wrist Social History Household Members: Other Housing: Apartment Are you a primary career law clerk to a significant other at home: No Do you presently have visiting nurse or other home services: No Alcohol intake: never Patient Tobacco Use Status: Never used Tobacco Second Hand Smoke Exposure: No service: No Review of Systems Const All systems reviewed & are unremarkable except as noted in HPI and below Physical Exam Extrem Other: Right hip: Incision intact. Tejal are intact. There is no surrounding erythema. The incision does appear to be raw appearing. No active drainage. No pain with hip ROM. NVI. Assessment & Plan Assessment & Plan (1) Status post total replacement of right hip: Code(s): Z96.641 - Presence of right artificial hip joint Plan Tejal will remain intact at this time. I reapplied another joint dressing and advised against showering. I did explain that if he does have excess perspiration, he should keep the area dry and not apply a lot of pressure when he is sitting on the right hip. He will see me back on Saturday with for potential staple removal. He will continue working with therapy and see me back as planned. Orders: Orders PT Evaluation and Treatment Today Z96.641 - Presence of right artificial hip joint Patient Instructions: Scribed for Ta-Carline Hampton PA-C, by Carlton Davis, medical esthetician, on 07/11/2023 at 12:30 PM EST. IMarie PA-C, have personally reviewed and agree with the information entered by the scribe. Coding Level of Care Code Global (82111) Diagnoses Status post total replacement of right hip Z96.641
== END 2023-07-11 14:22 | disposition home or self-care (01) ==
PROVIDERS: Visit Provider Physician Assistant
DX: Z96.641 Presence of right artificial hip joint (principal)
CPT/HCPCS: 99024

== ENCOUNTER → 2023-07-11 11:26 | Outpatient (BNVA) | payer OTHER, SELFPAY | PROVIDERS: Visit Provider Physician Assistant ==

== ENCOUNTER 2023-07-15 08:34 | Outpatient (REF) | payer OTHER, SELFPAY ==
--- NOTE | ~2023-07-15 | XR_ITS ---
EXAMINATION: XR PELVIS CLINICAL INFORMATION: Hip pain COMPARISON: 06/25/2023 TECHNIQUE: AP view of the pelvis. FINDINGS: Symphysis the previous study, postoperative air has resolved and surgical skin mulugeta have been removed. Stable and satisfactory appearance of right total hip replacement prosthetic components and alignment. No evidence of loosening. Left hip joint narrowing again seen. SI joints within normal limits. Visualized bony pelvis is intact. Moderate fecal retention. XR/XR pelvis 1-2V IMPRESSION: Stable right total hip replacement.
== END 2023-07-15 08:35 | disposition home or self-care (01) ==
LOC: HO.HOSX 08:34
PROVIDERS: Visit Provider Orthopaedic Surgery
DX: Z47.1 Aftercare following joint replacement surgery (principal); Z96.641 Presence of right artificial hip joint
CPT/HCPCS: 72170

== ENCOUNTER 2023-07-15 10:41 | Outpatient (AMB) | payer OTHER, SELFPAY ==
--- NOTE | 2023-07-15 10:59 | A.OFFVIS_ITS ---
Intake Intake Visit Reasons: PO-RT LOLI 06/25/23 NE Intake Note: Didi 47 year old male who presents today for a post operative RT LOLI on 06/25/23 NE. Patient reports he is doing well, he states very little pain. Allergies No Known Allergies Allergy (Verified 07/15/23 11:00) HPI PO-RT LOLI 06/25/23 NE HPI Details Didi 47 year old male who presents today for a postoperative RT LOLI on 06/25/23 NE. Patient reports he is doing well, he states very little pain. [facility] Medical History No pertinent past medical history Surgical History Hx of appendectomy History of surgery on left wrist Social History Household Members: Other Housing: Apartment Are you a primary youth care professional to a significant other at home: No Do you presently have visiting nurse or other home services: No Alcohol intake: never Patient Tobacco Use Status: Never used Tobacco Second Hand Smoke Exposure: No service: No Physical Exam Extrem Other: inc c/d/i no pain with hip ROM Results Reviewed Results Reviewed: I personally reviewed relevant radiographs. right LOLI in expected post operative position with no hardware complications or evidence of loosening Assessment & Plan Assessment & Plan (1) Status post total replacement of right hip: Code(s): Z96.641 - Presence of right artificial hip joint Plan: Feels well. Follow-up in 4 weeks. Continue PT. Orders: Orders XR pelvis 1-2V Today M25.559 - Pain in unspecified hip Coding Level of Care Code Global (31244) Diagnoses Status post total replacement of right hip Z96.641
== END 2023-07-15 11:52 | disposition home or self-care (01) ==
PROVIDERS: Visit Provider Orthopaedic Surgery
DX: Z96.641 Presence of right artificial hip joint (principal)
CPT/HCPCS: 99024

== ENCOUNTER 2023-08-15 12:02 | Outpatient (AMB) | payer OTHER, SELFPAY ==
--- NOTE | 2023-08-15 12:15 | A.OFFVIS_ITS ---
Intake Intake Visit Reasons: PO-RT LOLI 06/25/23 NE Intake Note: Didi 47 year old male who presents today for a post operative RT LOLI on 06/25/23 NE. Allergies No Known Allergies Allergy (Verified 07/15/23 11:00) HPI PO-RT LOLI 06/25/23 NE HPI Details Didi 47 year old man who presents ~7 weeks S/P right LOLI. [place] patient He says he is doing well and denies any pain. He has been attending PT and says this is going well. [facility] Medical History No pertinent past medical history Surgical History Hx of appendectomy History of surgery on left wrist Social History Household Members: Other Housing: Apartment Are you a primary career counselor to a significant other at home: No Do you presently have visiting nurse or other home services: No Alcohol intake: never Patient Tobacco Use Status: Never used Tobacco Second Hand Smoke Exposure: No service: No Review of Systems Const All systems reviewed & are unremarkable except as noted in HPI and below Physical Exam Const General: no acute distress, alert and awake Orientation/consciousness: patient oriented x3 HEENT Head: Yes normocephalic and Yes atraumatic Eyes EOM: EOMs intact bilaterally Resp Effort & Inspection: normal respiratory effort and able to speak in complete sentences Cardio Jugular venous distension: no JVD Skin General skin exam: turgor normal Rashes: no rashes Neuro General: patient oriented x3 Extrem Other: Right Hip: Incision well-healed No pain with hip ROM Psych Appearance: grossly normal Affect: normal affect Attitude: cooperative Results Reviewed Results Reviewed: I personally reviewed relevant radiographs. right LOLI in expected post operative position with no hardware complications or evidence of loosening Assessment & Plan Assessment & Plan (1) Status post total replacement of right hip: Code(s): Z96.641 - Presence of right artificial hip joint Plan: This is a 47 year old man S/P right LOLI, DOS: 06/25/23. He says he is doing well, without complaints, and is happy with the results of his surgery. He has been attending PT and feels better every day.. I recommend he continue with PT and remain active as tolerated. He will follow up in 6 weeks. Discussed dental prophylaxis. Plan Scribed for Ifeanyi Hayden MD by Charles Mraiscal, medical laboratory technical officer, on 08/15/23 at 12:30 PM, EST. Coding Level of Care Code Global (57948) Diagnoses Status post total replacement of right hip Z96.641
== END 2023-08-15 12:29 | disposition home or self-care (01) ==
PROVIDERS: Visit Provider Orthopaedic Surgery
DX: Z96.641 Presence of right artificial hip joint (principal)
CPT/HCPCS: 99024

== ENCOUNTER → 2023-08-15 12:02 | Outpatient (BNVA) | payer OTHER, SELFPAY | PROVIDERS: Visit Provider Orthopaedic Surgery ==

== ENCOUNTER 2023-09-24 08:00 | Outpatient (RCR) | payer OTHER, SELFPAY ==
--- NOTE | 2023-08-06 15:27 | MHC.PT.EP ---
[facility] [place] Office [place] Office [place] Office [address] Galindo Cruz [address] [phone] F: [phone] F: [phone] F: [phone] F: [phone] Physical Therapy Plan of Care Date of Evaluation: 08/06/23 Date of Surgery: 06/25/2023 Diagnosis: s/p RIGHT LOLI (DOS: 06/25/23) Assessment: Patient is a 47 y.o. male who is referred to PT by Dr. Ifeanyi Hayden with Dx of s/p RIGHT LOLI. Patient impairments include pain, limited ROM, weakness, antalgic gait, impaired transfers. Patient current functional limitations are walking, standing, bending, stair use. Patient will benefit from skilled PT to address aforementioned impairments and functional limitations to meet established goals. Frequency and Duration: The patient will be seen 2x/week for 6 weeks Short Term Goals: 3 weeks Patient demonstrates consistency and independence with HEP to self manage symptoms. Patient is able to adhere to posterior hip precautions without cues. Licensed Clinician Goals: 6 weeks Patient presents with increased R hip extension 10 degrees to restore ambulation without AD. Patient presents with increased R glute strength 4+/5 to be able to perform sit to stands without hands. Treatment Plan: Modalities to reduce pain, spasms and effusion. Manual therapy to restore motion and function. Therapeutic exercise to improve strength and flexibility. Neuromuscular re-education for posture and balance. Therapeutic activities to return to functional activities of daily living. Electronically signed by: Hussein Nielsen, PT, DPT Please sign and return to therapist. Thank you for your referral.
--- NOTE | 2023-10-10 14:42 | MHC.PT.DC ---
[facility] [place] Office [place] Office [place] Office [address] Galindo Cruz [address] [phone] F: [phone] F: [phone] F: [phone] F: [phone] Physical Therapy Discharge Report Diagnosis: s/p RIGHT LOLI (DOS: 06/25/23) Date of Surgery: 06/25/2023 Date of Evaluation: 08/06/23 Date of Discharge: 10/10/23 Treatments to Date: 10 Cancellations to Date: No Shows to Date: Discharge Status: Achieved Goals Improved Function Independent with HEP Discharge Summary: Patient completed course of PT following LOLI. His last PT assessment reads, Today was pt's last visit. He is grateful for everything from the surgery to his rehab. He is I w/ his HEP. D/C to HEP. Electronically signed by: Hussein Nielsen, PT, DPT Please sign and return to therapist. Thank you for your referral.
== END 2023-10-10 14:44 | disposition home or self-care (01) ==
LOC: HO.PT 08:00
PROVIDERS: Visit Provider Physician Assistant
DX: Z96.641 Presence of right artificial hip joint (principal)
CPT/HCPCS: 97110; 97112; 97161; 97530; 97535

== ENCOUNTER 2023-09-30 09:06 | Outpatient (REF) | payer OTHER, SELFPAY | END 2023-09-30 09:07 | disposition home or self-care (01) | LOC: HO.HOSX 09:06 | PROVIDERS: Visit Provider Orthopaedic Surgery | DX: Z13.89 Encounter for screening for other disorder (principal) ==

== ENCOUNTER 2023-10-11 09:10 | Outpatient (REF) | payer OTHER, SELFPAY ==
--- NOTE | ~2023-10-11 | XR_ITS ---
EXAMINATION: XR PELVIS CLINICAL INFORMATION: Pain COMPARISON: Pelvic x-ray 07/15/2023 TECHNIQUE: AP view of the pelvis. FINDINGS: Pelvic ring is intact. No pelvic fracture. Sacroiliac joints are symmetric. Partially visualized right hip prosthesis is unremarkable. Minimal degenerative changes of the left hip. XR/XR pelvis 1-2V IMPRESSION: No pelvic fracture.
== END 2023-10-11 09:11 | disposition home or self-care (01) ==
LOC: HO.HOSX 09:10
PROVIDERS: Visit Provider Orthopaedic Surgery
DX: Z47.1 Aftercare following joint replacement surgery (principal); Z96.641 Presence of right artificial hip joint
CPT/HCPCS: 72170; 99212

== ENCOUNTER 2023-10-11 11:39 | Outpatient (AMB) | payer OTHER, SELFPAY ==
--- NOTE | 2023-10-11 12:06 | A.OFFVIS_ITS ---
Intake Intake Visit Reasons: ov--RT LOLI 06/25/23 NE Intake Note: Didi 47 year old male who presents today for a post operative RT LOLI on 06/25/23 NE Allergies No Known Allergies Allergy (Verified 07/15/23 11:00) HPI ov--RT LOLI 06/25/23 NE HPI Details Jovany nohemy 48 year old man who presents ~14 weeks S/P right LOLI. [place] patient He says he is doing well and denies any pain. He has been attending PT and says this is going well. He is happy with the results of his surgery. [facility] Medical History No pertinent past medical history Surgical History Hx of appendectomy History of surgery on left wrist Social History Household Members: Other Housing: Apartment Are you a primary critical care clinical nurse specialist to a significant other at home: No Do you presently have visiting nurse or other home services: No Alcohol intake: never Patient Tobacco Use Status: Never used Tobacco Second Hand Smoke Exposure: No service: No Review of Systems Const All systems reviewed & are unremarkable except as noted in HPI and below Physical Exam Const General: no acute distress, alert and awake Orientation/consciousness: patient oriented x3 HEENT Head: Yes normocephalic and Yes atraumatic Eyes EOM: EOMs intact bilaterally Resp Effort & Inspection: normal respiratory effort and able to speak in complete sentences Cardio Jugular venous distension: no JVD Skin General skin exam: turgor normal Rashes: no rashes Neuro General: patient oriented x3 Extrem Other: Nl gait No TTP No pain with hip ROM Psych Appearance: grossly normal Affect: normal affect Attitude: cooperative Results Reviewed Results Reviewed: I personally reviewed relevant radiographs. right LOLI in expected post operative position with no hardware complications or evidence of loosening Assessment & Plan Assessment & Plan (1) Status post total replacement of right hip: Code(s): Z96.641 - Presence of right artificial hip joint Plan: Doimg well f/u 9 mo Plan Scribed for Ifeanyi Hayden MD by Charles Mariscal, medical communication specialist, on 10/11/23 at 12:15 PM, EST. Orders: Orders XR pelvis 1-2V Today M25.559 - Pain in unspecified hip Coding Level of Care Code Global (13375) Diagnoses Status post total replacement of right hip Z96.641
== END 2023-10-11 12:45 | disposition home or self-care (01) ==
PROVIDERS: Visit Provider Orthopaedic Surgery
DX: Z47.1 Aftercare following joint replacement surgery (principal); Z96.641 Presence of right artificial hip joint
CPT/HCPCS: 99212

== ENCOUNTER 2024-01-06 09:42 | Emergency (ER) | payer OTHER, SELFPAY ==
[2024-01-06 10:34] VITALS: BP 119/62; PULSE 73; RESP 18; TEMP 36.6; O2SAT 98; BMI 30.5
[2024-01-06 11:30] LABS: IDNOW Serial# 08D9AD1C; Strep A Nucleic Acid Negative (Negative)
[2024-01-06 12:08] LABS: Influenza A PCR NEGATIVE (Negative); Influenza B PCR NEGATIVE (Negative); Resp Syncy Virus RNA Qual PCR NEGATIVE (Negative); SARS COV2 PCR INHOUSE POSITIVE (Negative)
--- NOTE | 2024-01-06 12:13 | ED.URI ---
HPI - URI/Sore Throat General Chief Complaint: Upper Respiratory Symptoms Stated Complaint: Sore throat/Cough Time Seen by Provider: 01/06/24 11:28 Source: patient Mode of arrival: ambulatory Limitations: language barrier History of Present Illness HPI Narrative: 48-year-old male with past medical history of total hip replacement presents to the emergency department with complaints a 2 day history of sore throat, cough, congestion, and a ?burning feeling on back . He reports that he had a fever on Saturday and has not been febrile since. He states he has been using [id number]-[id number] medications for management of symptoms. He denies any shortness of breath, chest pain, headache, vision changes, nausea, vomiting, diarrhea, constipation, change in gait or range of motion. Pertinent positives and negatives discussed in HPI Related Data Previous Rx's Medication Instructions Recorded walker #1 ea 05/22/23 acetaminophen 325 mg tablet 650 mg (2 x 325 mg) PO Q6H PRN 06/27/23 Pain, Mild (Pain Scale 1-3) 30 days #240 tabs aspirin 325 mg tablet 325 mg PO BID 42 days #84 tabs 06/27/23 celecoxib 200 mg capsule 200 mg PO BID 30 days #60 caps 06/27/23 docusate sodium 100 mg capsule 100 mg PO BID 30 days #60 caps 06/27/23 oxycodone 5 mg tablet 5 mg PO Q4H PRN Pain, 06/27/23 Moderate(Pain Scale 4-6) 7 days #42 tabs Allergies Allergy/AdvReac Type Severity Reaction Status Date / Time No Known Allergies Allergy Verified 01/06/24 10:34 [facility] Past Medical History Medical History No pertinent past medical history Surgical History Hx of appendectomy History of surgery on left wrist Social History Social History Household Members: Other Housing: Apartment Are you a primary nurse care manager to a significant other at home: No Do you presently have visiting nurse or other home services: No Alcohol intake: never Patient Tobacco Use Status: Never used Tobacco Second Hand Smoke Exposure: No Advance Directives: No service: No Physical Exam Vital Signs: Vital Signs: Last Vital Signs Temp 98 F 01/06/24 10:34 Pulse 73 01/06/24 10:34 Resp 18 01/06/24 10:34 BP 119/62 01/06/24 10:34 Pulse Ox 98 01/06/24 10:34 O2 Del Method Room Air 01/06/24 10:34 BMI result Body Mass Index 30.5 Nursing notes and vital signs reviewed. GENERAL APPEARANCE: A&0 x 4, generally well appearing, no acute distress HENMT: Normal to inspection, atraumatic, face symmetrical. Normal external ears and nose clear. Erythema posterior oropharynx with 2+ left tonsil EYE: PERRLA, EOM intact, structures appear normal NECK: Supple without stiffness or restricted ROM. HEART: Normal rate and regular rhythm, normal S1/S2, no M/R/G LUNGS: LS CTA, moving air well. Able to speak in complete sentences. No crackles, wheezes, or rhonchi auscultated BACK: No CVAT, no obvious deformity EXTREMITIES: Moving all extremities without difficulty. Normal capillary refill. NEUROLOGICAL: Alert and oriented, moving all 4 extremities with equal strength. CN not formally tested but appearing grossly intact. Observed to ambulate with normal gait. Cognition normal SKIN: Warm and dry without any lesions, rash, or visible sores Medical Decision Making Medical Decision Making MDM Narrative: Old records reviewed for previous imaging, lab studies, ECGs, and notes. Patient was assessed the emergency department with no acute distress or toxicity noted. Nasal serologies positive for COVID a negative for flu and RSV. Patient is safe for discharge at this time with plan for [id number] Tylenol and/or NSAID such as ibuprofen or naproxen for fever/discomfort with dosing as per packaging. HPI, PE, diagnostics, and plan discussed with patient and family with no unanswered questions at this time. Strict return precautions given to return to the emergency department with new, worsening, or concerning emergent symptoms. Recommended to follow-up with there primary care provider in 24-48 hours for further treatment and management. Differential Diagnosis Differential Diagnoses: The differential diagnosis associated with the presentation includes But not limited to strep, viral upper respiratory infection, pharyngitis, SPOILAGE WORKER, pneumonia, sepsis, malignancy Lab Data [facility] Lab Attestation statement: I reviewed the patient's lab results. Labs: Lab Results 01/06/24 Range/Units 11:18 Influenza Type A (PCR) NEGATIVE (Negative) Influenza Type B (PCR) NEGATIVE (Negative) RSV RNA Qual (PCR) NEGATIVE (Negative) SARS-CoV-2 RNA (RT-PCR) POSITIVE A (Negative) S. pyogenes GrpA GREG Negative (Negative) Discharge Plan Discharge Clinical Impression: COVID-19 Patient Disposition: Home, Self-Care Instructions: COVID-19 (Coronavirus Disease 2019) (ED) Prescriptions: No Action (DME) walker Misc See Rx Instructions .MEDSUPPLY Qty: 1 0RF Rx Instructions: Folding Front wheeled walker celecoxib 200 mg Capsule 200 mg PO BID 30 Days Qty: 60 0RF acetaminophen 325 mg Tablet 650 mg PO Q6H PRN (Reason: Pain, Mild (Pain Scale 1-3)) 30 Days Qty: 240 0RF aspirin 325 mg Tablet 325 mg PO BID 42 Days Qty: 84 0RF docusate sodium 100 mg Capsule 100 mg PO BID 30 Days Qty: 60 0RF oxycodone 5 mg Tablet 5 mg PO Q4H PRN (Reason: Pain, Moderate(Pain Scale 4-6)) 7 Days Qty: 42 0RF Rx Instructions: Partial Fill upon patient request. Referrals: [facility] Family Medicine [Provider Group] [facility] Primary CareJinny [Provider Group] [facility] Primary CareJayant [Provider Group] Stand Alone Forms: Work/School Release Print Language: Faroese
== END 2024-01-06 14:32 | disposition home or self-care (01) ==
PROVIDERS: Emergency Provider Emergency Medicine
DX: U07.1 COVID-19 (principal)
CPT/HCPCS: 0241U; 87651; 99282; 99283

== ENCOUNTER 2024-06-26 09:32 | Outpatient (REF) | payer OTHER, SELFPAY | END 2024-06-26 09:33 | disposition home or self-care (01) | LOC: HO.HOSX 09:32 | PROVIDERS: Visit Provider Orthopaedic Surgery | DX: Z13.89 Encounter for screening for other disorder (principal) ==

== ENCOUNTER 2024-08-04 17:27 | Emergency (ER) | payer OTHER, SELFPAY ==
--- NOTE | ~2024-08-04 | XR_ITS ---
EXAMINATION: XR SHOULDER, RIGHT CLINICAL INFORMATION: Shoulder pain. COMPARISON: None available. TECHNIQUE: 3 views of the left shoulder (AP with external rotation, Grashey view, and Y-view) FINDINGS: No acute fracture or dislocation of the right shoulder. The humeral head remains well-seated in the glenoid fossa. The acromioclavicular joint, coracoclavicular distance, and acromiohumeral interval are normal in appearance. No lytic or sclerotic osseous lesions. No focal soft tissue swelling. No radiopaque foreign bodies. The visualized right hemithorax is normal in appearance. XR/XR shoulder RT min 2V IMPRESSION: No evidence of acute fracture or dislocation of the right shoulder. Electronically signed by: Fer Holguin DO 08/04/2024 08:04 PM EDT
[2024-08-04 17:33] VITALS: BP 138/87; PULSE 84; RESP 16; TEMP 36.8; O2SAT 96; BMI 32.1
--- NOTE | 2024-08-04 17:33 | ED_ITS ---
HPI - General Adult General Chief complaint: Extremity Injury, Upper Stated complaint: RT shoulder pain Time Seen by Provider: 08/04/24 21:16 Source: patient Mode of arrival: ambulatory Limitations: no limitations History of Present Illness ED Provider: Dr. Alicia Robb HPI narrative: Patient comes to the emergency room complaining of right-sided shoulder pain that started couple of days ago. Patient states that he did not have any injury. Patient states that he was trying to lift up heavy boxes at work and noted that he had pain. Patient states that he did not get injured at work, the pain was already there but got exacerbated by moving his arm above 90 degrees. Patient denies fever chills, denies any swelling. Related Data Previous Rx's ?Medication ?Instructions ?Recorded walker #1 ea 05/22/23 acetaminophen 325 mg tablet 650 mg (2 x 325 mg) PO Q6H PRN 06/27/23 Pain, Mild (Pain Scale 1-3) 30 days #240 tabs aspirin 325 mg tablet 325 mg PO BID 42 days #84 tabs 06/27/23 celecoxib 200 mg capsule 200 mg PO BID 30 days #60 caps 06/27/23 docusate sodium 100 mg capsule 100 mg PO BID 30 days #60 caps 06/27/23 oxycodone 5 mg tablet 5 mg PO Q4H PRN Pain, 06/27/23 Moderate(Pain Scale 4-6) 7 days #42 tabs ibuprofen 600 mg tablet 600 mg PO Q8H PRN fever or pain 08/04/24 #20 tabs lidocaine 4 % topical patch 1 patch topical TID PRN pain #15 ea 08/04/24 (Aspercreme (lidocaine)) Allergies Allergy/AdvReac Type Severity Reaction Status Date / Time No Known Allergies Allergy Verified 08/04/24 17:35 Review of Systems Review of Systems: Constitutional : No Weight loss, No Fever, No Chills, No Night Sweats, No Fatigue, No Malaise ENT/Mouth : No Hearing loss, No Ear Pain, No Nasal Congestion, No Sinus Pain, No Hoarseness, No sore throat, No Rhinorrhea, No Swallowing Difficulty Eyes: No Eye Pain, No Swelling, No Redness, No Foreign Body, No Discharge, No Vision Changes Cardiovascular : No Chest Pain, No SOB, No Dyspnea on Exertion, No Orthopnea, No Edema, No Palpitations Respiratory : No Cough, No Sputum, No Wheezing, No Smoke Exposure, No Dyspnea Gastrointestinal : No Nausea, No Vomiting, No Diarrhea, No Constipation, No abdominal Pain, No Hematochezia, No Melena Genitourinary : no irregular bleeding, No Dysuria, No Urinary Frequency, No Hematuria, No Urinary Incontinence, No Urgency, No Flank Pain, No Urinary Flow Changes, No Hesitancy Musculoskeletal : Complaining of right shoulder pain, No Myalgias, No Joint Swelling Skin : No Skin Lesions, No rash Neuro : No Weakness, No Numbness, No Paresthesias, No Loss of Consciousness, No Dizziness, No Headache Psych : No Anxiety/Panic, No Depression, No SI/HI/AH/VH, No Social Issues, Heme/Lymph: No Bruising, No Bleeding,No Lymphadenopathy Endocrine : No Polyuria, No Polydipsia, No Temperature Intolerance [facility] Past Medical History Medical History (Updated 08/04/24 @ 21:39 by Alicia Robb MD) Avascular necrosis of bone of right hip No pertinent past medical history Surgical History Hx of appendectomy History of surgery on left wrist Social History Social History Household Members: Other Housing: Apartment Are you a primary physician assistant primary care to a significant other at home: No Do you presently have visiting nurse or other home services: No Alcohol intake: never Patient Tobacco Use Status: Never used Tobacco Second Hand Smoke Exposure: No Advance Directives: No Advance Directives Information Provided: No service: No Physical Exam ED Vital Signs: Vital Signs - 24 hr 08/04/24 17:33 Temperature 98.2 F Pulse Rate 84 Respiratory Rate 16 Blood Pressure 138/87 Pulse Oximetry 96 Oxygen Delivery Method Room Air BMI result Body Mass Index 32.1 Const Other: Appearance: Alert. Oriented X3. No acute distress. Eyes: Pupils equal, round and reactive to light. ENT: Pharynx normal. Neck: Normal inspection. Neck supple. No lymph nodes noted. No crepitus CVS: Normal heart rate and rhythm. Pulses normal. Normal S1 and S2 Respiratory: No respiratory distress. Breath sounds normal. No Wheezing. No rales Abdomen: Soft and nontender. No rigidity. No distention. Skin: Skin warm and dry. Normal skin color. Normal skin turgor. Extremities: No lower extremity edema. No Lacerations. No Rash. Pain to palpation over the lateral aspect of the right shoulder and pain to palpation over the suprascapular muscles on the right. Patient is able to lift his arm all the way up to 180 degrees but hurts doing so. Patient has good strength Neuro: Oriented X 3. No motor deficit. No sensory deficit. Moving all extremities. No slurred speech. CN 2 through 12 grossly intact Psych: calm, cooperative, normal affect Course Course Course Narrative: RME, this is a rapid medical exam performed by Tony Bueno please refer to primary provider for complete H&P- 48-year-old male presents for evaluation of right shoulder pain. 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 Plan for x-ray. Medical Decision Making Medical Decision Making [facility] Narrative: My interpretation of x-rays of the shoulder: Normal alignment, no signs of fracture On physical exam, the shoulder appears normal, no findings that would suggest septic joint Discussed with the patient the x-ray findings. Patient may have ligamentous injury. Patient will try Tylenol and ibuprofen and Lidoderm patches. Discussed with the patient that if that does not work, he may need physical therapy. Patient agreeable with plan Differential Diagnosis Differential Diagnoses: The differential diagnosis associated with the presentation includes Independent Interpretation I performed an independent interpretation of an: Plain X-Ray Radiology Impression Discussion of test interpretation with radiology: I have reviewed the radiologist's reading. Radiologist Impression: No acute fracture or dislocation of the right shoulder. The humeral head remains well-seated in the glenoid fossa. The acromioclavicular joint, coracoclavicular distance, and acromiohumeral interval are normal in appearance. No lytic or sclerotic osseous lesions. No focal soft tissue swelling. No radiopaque foreign bodies. The visualized right hemithorax is normal in appearance. XR/XR shoulder RT min 2V IMPRESSION: No evidence of acute fracture or dislocation of the right shoulder. Discharge Plan Discharge Clinical Impression: Arthralgia of right shoulder region Patient Disposition: Home, Self-Care Instructions: Arthralgia (ED) Additional Instructions: Please follow-up with your primary care physician tomorrow. If you have any worsening or new symptoms, please return to the emergency room or call 911 Prescriptions: New ibuprofen 600 mg tablet 600 mg PO Q8H PRN (Reason: fever or pain) Qty: 20 0RF lidocaine [Aspercreme (lidocaine)] 4 % adhesive patch,medicated 1 patch topical TID PRN (Reason: pain) Qty: 15 0RF No Action (DME) walker Misc See Rx Instructions .MEDSUPPLY Qty: 1 0RF Rx Instructions: Folding Front wheeled walker celecoxib 200 mg Capsule 200 mg PO BID 30 Days Qty: 60 0RF acetaminophen 325 mg Tablet 650 mg PO Q6H PRN (Reason: Pain, Mild (Pain Scale 1-3)) 30 Days Qty: 240 0RF aspirin 325 mg Tablet 325 mg PO BID 42 Days Qty: 84 0RF docusate sodium 100 mg Capsule 100 mg PO BID 30 Days Qty: 60 0RF oxycodone 5 mg Tablet 5 mg PO Q4H PRN (Reason: Pain, Moderate(Pain Scale 4-6)) 7 Days Qty: 42 0RF Rx Instructions: Partial Fill upon patient request. Print Language: Belarusian
[2024-08-04 21:52] VITALS: BP 138/87; PULSE 84; RESP 16; TEMP 36.8; O2SAT 96
== END 2024-08-04 21:53 | disposition home or self-care (01) ==
PROVIDERS: Emergency Provider Emergency Medicine
DX: M25.511 Pain in right shoulder (principal)
CPT/HCPCS: 73030; 99282; 99283

== ENCOUNTER 2024-08-18 12:48 | Emergency (ER) | payer OTHER, SELFPAY ==
[2024-08-18 13:07] VITALS: BP 136/81; PULSE 64; RESP 20; TEMP 36.6; O2SAT 98; BMI 28.3
--- NOTE | 2024-08-18 13:09 | ED.UPPEXIN ---
HPI - Extremity Injury (Upper) General Chief Complaint: Extremity Problem Stated Complaint: R shoulder pain Time Seen by Provider: 08/18/24 13:22 Source: patient and RN notes reviewed Mode of arrival: ambulatory Limitations: language barrier History of Present Illness ED Provider: Krista Wadsworth PA-C HPI narrative: This is a 48-year-old [place]er-speaking male who presents emergency department with complaints of ongoing right shoulder pain. Patient was seen 2 weeks ago for this pain without any acute injury. He states that he took the ibuprofen however states that this was not alleviating his pain. He states that he has had ongoing pain in his right shoulder as well as associated difficulty with movement of his shoulder due to weakness and pain. Denies any new injury. No heavy lifting or falls. No other numbness, tingling, chest pain, shortness breath or any other symptoms. He ran out of the ibuprofen. He did not follow-up with Orthopedics. No other complaints or concerns at this time. MD complaint: injury to: right and shoulder Handedness: right Place: other Severity: moderate Relieving factors: none Exacerbating factors: none Associated symptoms: denies other symptoms Related Data Previous Rx's ?Medication ?Instructions ?Recorded walker #1 ea 05/22/23 acetaminophen 325 mg tablet 650 mg (2 x 325 mg) PO Q6H PRN 06/27/23 Pain, Mild (Pain Scale 1-3) 30 days #240 tabs aspirin 325 mg tablet 325 mg PO BID 42 days #84 tabs 06/27/23 celecoxib 200 mg capsule 200 mg PO BID 30 days #60 caps 06/27/23 docusate sodium 100 mg capsule 100 mg PO BID 30 days #60 caps 06/27/23 oxycodone 5 mg tablet 5 mg PO Q4H PRN Pain, 06/27/23 Moderate(Pain Scale 4-6) 7 days #42 tabs ibuprofen 600 mg tablet 600 mg PO Q8H PRN fever or pain 08/04/24 #20 tabs lidocaine 4 % topical patch 1 patch topical TID PRN pain #15 ea 08/04/24 (Aspercreme (lidocaine)) acetaminophen 500 mg tablet 1,000 mg (2 x 500 mg) PO Q8H PRN 08/18/24 (Tylenol Extra Strength) pain #30 tabs ibuprofen 600 mg tablet 600 mg PO Q6H PRN pain #30 tabs 08/18/24 Allergies Allergy/AdvReac Type Severity Reaction Status Date / Time No Known Allergies Allergy Verified 08/18/24 13:10 Review of Systems Review of Systems: Yes all other systems are reviewed and are negative Constitutional: Constitutional: Reports as per [facility] Past Medical History Attestation statement: The following information was validated with the patient. Medical History Avascular necrosis of bone of right hip No pertinent past medical history Surgical History Hx of appendectomy History of surgery on left wrist Social History Social History Household Members: Other Housing: Apartment Are you a primary healthcare account manager to a significant other at home: No Do you presently have visiting nurse or other home services: No Alcohol intake: never Patient Tobacco Use Status: Never used Tobacco Second Hand Smoke Exposure: No Advance Directives: No Do you have a plan to hurt others: No Plan service: No Physical Exam Vital Signs: Vital Signs: Last Vital Signs Temp 97.9 F 08/18/24 13:07 Pulse 64 08/18/24 13:07 Resp 20 08/18/24 13:07 BP 136/81 08/18/24 13:07 Pulse Ox 98 08/18/24 13:07 O2 Del Method Room Air 08/18/24 13:07 BMI result Body Mass Index 28.3 Const: General: cooperative, comfortable and no acute distress Orientation/consciousness: patient oriented x3 Limitations: no limitations HEENT: Head: Yes normal to inspection, Yes normocephalic and Yes atraumatic Ears: hearing grossly normal bilaterally General nose exam: Normal external nose present Face and sinus: Yes normal facial exam Mouth: Normal oral and palatal mucosa present, oropharynx normal and moist mucous membranes Throat: Yes posterior oropharynx normal Eyes: General: appearance normal, both eyes and all related structures Eyelids: Yes eyelids normal Conjunctivae: conjunctivae normal Sclerae: sclerae normal Pupils: Equal, round and reactive pupils present EOM: EOMs intact bilaterally Neck: Neck: Yes normal visual inspection, Yes full ROM and Yes no lymphadenopathy Lymphatic: no lymphadenopathy noted Chest: Chest palpation & inspection: normal inspection of the chest Resp: Effort & Inspection: normal respiratory effort and able to speak in complete sentences Auscultation: clear to auscultation bilaterally, no crackles, no rales, no rhonchi and no wheezes Cardio: Rate: regular rate Rhythm: regular rhythm Heart sounds: S1 normal heart sound present and S2 normal heart sound present GI: Inspection: Yes normal to inspection Skin: General skin exam: no rashes or lesions noted Trauma: no lacerations or abrasions Wounds: no wounds Neuro: General: patient oriented x3 and moves all extremities Cranial nerves: Yes Equal, round and reactive pupils present Extrem: Other: TTP overlying the right AC joint. Able to abduct shoulder to about 90?. Unable to lift pass the secondary to weakness and pain. Positive empty can, positive lift-off test. Strong radial pulse. Distal sensation circulation intact. Capillary refill less than 2 seconds General: Yes normal to inspection Right upper extremity: normal to inspection Left upper extremity: normal to inspection Right lower extremity: normal to inspection Left lower extremity: normal to inspection Medical Decision Making Medical Decision Making MDM Narrative: This is a 48-year-old male who presents emergency department with ongoing right shoulder pain. He was seen 2 weeks ago where he received x-rays which revealed no acute bony abnormalities. He has tenderness palpation along the insertion site of the rotator cuff. Given weakness, as well as ongoing pain, concerning for ligamentous injury/degeneration. Discussed findings with patient. He was given orthopedic referral. Also given prescription for ibuprofen and Tylenol. Given strict return precautions. He has no chest pain or shortness for breath. No other complaints. Patient understands and agrees with plan. Patient stable for discharge Differential Diagnosis Differential Diagnoses: The differential diagnosis associated with the presentation includes Fracture, contusion, ligamentous injury, rotator cuff injury Radiology Impression Discussion of test interpretation with radiology: I have reviewed the radiologist's reading. Radiologist Impression: Radiology report from August 04, 2024 XR/XR shoulder RT min 2V IMPRESSION: No evidence of acute fracture or dislocation of the right shoulder. Electronically signed by: Fer Holguin DO 08/04/2024 08:04 PM EDT RP Dictated By: Lalit Holguin DO Signed By: <Electronically signed b Discharge Plan Discharge Clinical Impression: Right shoulder pain Patient Disposition: Home, Self-Care Instructions: Arm Pain (ED) Additional Instructions: You were seen in the emergency department due to right shoulder pain. Please call the orthopedic team today to make an appointment. Please alternate between ibuprofen and Tylenol as needed for pain. Rest, ice, and gentle range of motion can also help with your symptoms. If any new or worsening symptoms occur including but not limited to inability to move your shoulder, fevers, chills, chest pain or shortness for breath, please seek emergent care. Prescriptions: New ibuprofen 600 mg tablet 600 mg PO Q6H PRN (Reason: pain) Qty: 30 0RF acetaminophen [Tylenol Extra Strength] 500 mg tablet 1,000 mg PO Q8H PRN (Reason: pain) Qty: 30 0RF No Action (DME) walker Misc See Rx Instructions .MEDSUPPLY Qty: 1 0RF Rx Instructions: Folding Front wheeled walker celecoxib 200 mg Capsule 200 mg PO BID 30 Days Qty: 60 0RF acetaminophen 325 mg Tablet 650 mg PO Q6H PRN (Reason: Pain, Mild (Pain Scale 1-3)) 30 Days Qty: 240 0RF aspirin 325 mg Tablet 325 mg PO BID 42 Days Qty: 84 0RF docusate sodium 100 mg Capsule 100 mg PO BID 30 Days Qty: 60 0RF oxycodone 5 mg Tablet 5 mg PO Q4H PRN (Reason: Pain, Moderate(Pain Scale 4-6)) 7 Days Qty: 42 0RF Rx Instructions: Partial Fill upon patient request. ibuprofen 600 mg tablet 600 mg PO Q8H PRN (Reason: fever or pain) Qty: 20 0RF lidocaine [Aspercreme (lidocaine)] 4 % adhesive patch,medicated 1 patch topical TID PRN (Reason: pain) Qty: 15 0RF Ref[place] [facility] [Provider Group] Discharge Date/Time: 08/18/24 13:52 Print Language: [place]
== END 2024-08-18 13:52 | disposition home or self-care (01) ==
PROVIDERS: Emergency Provider Emergency Medicine Emergency Medical Services
DX: M25.511 Pain in right shoulder (principal)
CPT/HCPCS: 99281

== ENCOUNTER 2024-09-10 01:06 | Emergency (ER) | payer OTHER, SELFPAY ==
[2024-09-10 01:10] VITALS: BP 131/87; PULSE 73; RESP 18; TEMP 36.7; O2SAT 97; BMI 32.7
[2024-09-10 05:01] VITALS: BP 125/81; PULSE 63; RESP 16; TEMP 36.4; O2SAT 99
--- NOTE | 2024-09-10 05:32 | PC.NURSE ---
Pt brought to [facility] for treatment, assumed care of pt at this time. A&Ox3 skin color wnl for ethnicity, respirations even unlabored. Endorsing right shoulder pain radiating down right arm x 1 month, going to PT for issue, no relief. +csm to right hand. Awaiting primary provider eval.
[2024-09-10 06:09] VITALS: BP 116/81; PULSE 66; RESP 16; TEMP 36.5; O2SAT 99
--- NOTE | 2024-09-10 06:47 | ED_ITS ---
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 Patient states that he has been seen multiple times for this and continues to follow with physical therapy. Patient states that he ran out of his previously prescribed medication and would like more. Patient denies any dizziness, lightheadedness, abdominal pain, nausea, vomiting, fever, chills, blurry vision, double vision, loss of vision, chest pain, difficulty breathing, shortness of breath, back pain, night sweats, pain with urination, increased urinary frequency, increased urinary urgency, blood in his urine or stool, syncope or a near syncopal episode, recent trauma or falls, bowel incontinence, bladder incontinence, or any other complaints at this time. Onset (ago): week(s) Location: right (shoulder) Severity: mild Relieving factors: none Exacerbating factors: movement Associated symptoms: denies other symptoms Treatments prior to arrival: NSAID Related Data Previous Rx's ?Medication ?Instructions ?Recorded walker #1 ea 05/22/23 acetaminophen 325 mg tablet 650 mg (2 x 325 mg) PO Q6H PRN 06/27/23 Pain, Mild (Pain Scale 1-3) 30 days #240 tabs aspirin 325 mg tablet 325 mg PO BID 42 days #84 tabs 06/27/23 celecoxib 200 mg capsule 200 mg PO BID 30 days #60 caps 06/27/23 docusate sodium 100 mg capsule 100 mg PO BID 30 days #60 caps 06/27/23 oxycodone 5 mg tablet 5 mg PO Q4H PRN Pain, 06/27/23 Moderate(Pain Scale 4-6) 7 days #42 tabs ibuprofen 600 mg tablet 600 mg PO Q8H PRN fever or pain 08/04/24 #20 tabs lidocaine 4 % topical patch 1 patch topical TID PRN pain #15 ea 08/04/24 (Aspercreme (lidocaine)) acetaminophen 500 mg tablet 1,000 mg (2 x 500 mg) PO Q8H PRN 08/18/24 (Tylenol Extra Strength) pain #30 tabs ibuprofen 600 mg tablet 600 mg PO Q6H PRN pain #30 tabs 08/18/24 acetaminophen 325 mg tablet 325 mg PO QID #30 tabs 09/10/24 (Tylenol) Allergies Allergy/AdvReac Type Severity Reaction Status Date / Time No Known Allergies Allergy Verified 09/10/24 01:15 Review of Systems Constitutional: Constitutional: Reports no additional constitutional complaints, Denies chills, Denies fever(s) and Denies night sweats Eyes: Eyes: Reports no additional eye complaints, Denies blurry vision, Denies change in vision, Denies diplopia, Denies eye discharge, Denies loss of vision and Denies eye pain ENT: Denies dizziness Cardiovascular: Cardiovascular: Reports no additional cardiovascular complaints, Denies chest pain, Denies lightheadedness, Denies Loss of Consciousness and Denies dyspnea Respiratory: Respiratory: Reports no additional respiratory complaints and Denies dyspnea Gastrointestinal: Gastrointestinal: Reports no additional gastrointestinal complaints, Denies abdominal pain, Denies melena, Denies hematochezia, Denies change in bowel habits and Denies change in stool character Genitourinary: Genitourinary: Reports no additional male genitourinary complaints, Denies hematuria, Denies oliguria, Denies difficulty urinating, Denies dysuria, Denies urinary frequency, Denies urinary hesitancy, Denies urinary incontinence and Denies urinary urgency Musculoskeletal: Musculoskeletal: Reports no additional musculoskeletal complaints, Denies numbness and Denies tingling Comments: right shoulder pain Neurologic: Denies dizziness, Denies loss of vision, Denies numbness and Denies tingling Psychiatric: Psychiatric: Reports no additional psychiatric complaints Endocrine: Endocrine: Reports no additional endocrine complaints Hematologic/Lymphatic: Hematologic/Lymphatic: Reports no additional hematologic/lymphatic complaints Allergic/Immunologic: Allergic/Immunologic: Reports no additional allergic/immunologic complaints PMFSH Past Medical History Attestation statement: The following information was validated with the patient. Source: old records reviewed and nursing notes reviewed Medical History Avascular necrosis of bone of right hip No pertinent past medical history Surgical History Hx of appendectomy History of surgery on left wrist Social History Social History Household Members: Other Housing: Apartment Are you a primary career development manager to a significant other at home: No Do you presently have visiting nurse or other home services: No Alcohol intake: never Patient Tobacco Use Status: Never used Tobacco Smoked in Last 30 Days: No Second Hand Smoke Exposure: No Use of substances other than those prescribed or required for medical reasons: No Advance Directives: Yes Advance Directives on File: Yes Advance Directives Date on File: 06/28/23 Do you have a plan to hurt others: No Plan service: No Physical Exam ED Vital Signs: Vital Signs - 24 hr 09/10/24 01:10 09/10/24 05:01 09/10/24 06:09 Temperature 98.1 F 97.6 F 97.7 F Pulse Rate 73 63 66 Respiratory Rate 18 16 16 Blood Pressure 131/87 125/81 116/81 Pulse Oximetry 97 99 99 Oxygen Delivery Method Room Air Room Air Room Air BMI result Body Mass Index 32.7 Const General: cooperative, no acute distress, alert and awake Nutritional Appearance: well nourished Orientation/consciousness: patient oriented x3 Limitations: no limitations HENMT Head: Yes normal to inspection and Yes atraumatic Ears: hearing grossly normal bilaterally and external ears normal General nose exam: Normal external nose present, no nasal discharge noted and no epistaxis Face and sinus: Yes normal facial exam, No abrasion and No laceration Mouth: Normal oral and palatal mucosa present, no drooling and no muffled voice Eyes General: appearance normal, both eyes and all related structures Periorbital: periorbital findings normal Eyelids: Yes eyelids normal Conjunctivae: conjunctivae normal Pupils: Equal, round and reactive pupils present EOM: EOMs intact bilaterally Neck Neck: Yes normal visual inspection, Yes full ROM and Yes no lymphadenopathy Chest Chest palpation & inspection: normal inspection of the chest Resp Effort & Inspection: normal respiratory effort and able to speak in complete sentences GI Inspection: Yes normal to inspection Neuro General: patient oriented x3 and moves all extremities Cranial nerves: Yes Equal, round and reactive pupils present Cognition (Neuro): normal cognition Extrem Other: limited right shoulder ROM secondary to pain General: Yes normal to inspection and Yes capillary refill normal Psych Appearance: grossly normal Mental Status: mental status grossly normal Affect: normal affect Attitude: cooperative Thought process: Normal thought process present Thought content: Normal thought content present Insight: Good insight present (Psych) Medical Decision Making Medical Decision Making MDM Narrative: Patient is a 48 year old assigned male at with no reported medical history presenting to the emergency department today with shoulder pain. Patient's phys ical exam was as noted in the physical exam portion of this note. I explained my physical exam findings to the patient. I answered all questions asked by the patient. I stressed the importance of the patient taking his medication as directed (either prescribed or as the over the counter packaging recommends). I stressed the importance of the patient following up with his primary care provider and his orthopedic provider. I stressed the importance of the patient returning to the emergency department immediately if his symptoms were to worsen or if he were to develop any dizziness, shortness of breath, difficulty breathing, chest pain, blurry vision, loss of vision, nausea, vomiting, abdominal pain, fever, chills, back pain, or any other complaints. Patient verbalized agreement and understanding with this treatment plan and discharge. Differential Diagnosis Differential Diagnoses: The differential diagnosis associated with the presentation includes Shoulder pain Rotator cuff injury Rotator cuff sprain Rotator cuff strain Admission/Observation Consideration of admission/observation: Escalation of care including admission/observation considered Patient would have been admitted to the hospital had his clinical presentation warranted hospital admission. Discharge Plan Discharge Clinical Impression: Acute shoulder pain Patient Disposition: Home, Self-Care Instructions: Arm Pain (ED) Additional Instructions: Follow up with your primary care provider and an orthopedic provider. Return to the emergency department immediately if your symptoms worsen or if you develop any dizziness, shortness of breath, difficulty breathing, chest pain, blurry vision, loss of vision, nausea, vomiting, abdominal pain, fever, chills, back pain, or any other complaints. Wu un seguimiento con jansen m?dico de cabecera y un traumat?logo. Acuda inmediatamente al servicio de urgencias si matheus s?ntomas empeoran o si presenta mareos, falta de aliento, dificultad para respirar, dolor tor?cico, visi?n borrosa, p?rdida de visi?n, n?useas, v?mitos, dolor abdominal, fiebre, escalofr?os, dolor de espalda o cualquier otra molestia. Prescriptions: New acetaminophen [Tylenol] 325 mg tablet 325 mg PO QID Qty: 30 0RF No Action (DME) walker [facility] See Rx Instructions .MEDSUPPLY Qty: 1 0RF Rx Instructions: Folding Front wheeled walker celecoxib 200 mg Capsule 200 mg PO BID 30 Days Qty: 60 0RF acetaminophen 325 mg Tablet 650 mg PO Q6H PRN (Reason: Pain, Mild (Pain Scale 1-3)) 30 Days Qty: 240 0RF aspirin 325 mg Tablet 325 mg PO BID 42 Days Qty: 84 0RF docusate sodium 100 mg Capsule 100 mg PO BID 30 Days Qty: 60 0RF oxycodone 5 mg Tablet 5 mg PO Q4H PRN (Reason: Pain, Moderate(Pain Scale 4-6)) 7 Days Qty: 42 0RF Rx Instructions: Partial Fill upon patient request. ibuprofen 600 mg tablet 600 mg PO Q8H PRN (Reason: fever or pain) Qty: 20 0RF lidocaine [Aspercreme (lidocaine)] 4 % adhesive patch,medicated 1 patch topical TID PRN (Reason: pain) Qty: 15 0RF ibuprofen 600 mg tablet 600 mg PO Q6H PRN (Reason: pain) Qty: 30 0RF acetaminophen [Tylenol Extra Strength] 500 mg tablet 1,000 mg PO Q8H PRN (Reason: pain) Qty: 30 0RF Ref[place]: [facility] [place] [facility] [place] Group] (Call to establish and follow up with a primary care provider. If you already have a primary care provider, please follow up with them. Llame para establecer y hacer un seguimiento con un proveedor de atenci?n primaria. Si ya tiene un proveedor de atenci?n primaria, wu un seguimiento con ?l. ) [facility] [Provider Group] (Call to establish and follow up with a primary care provider. If you already have a primary care provider, please follow up with them. Llame para establecer y hacer un seguimiento con un proveedor de atenci?n primaria. Si ya tiene un proveedor de atenci?n primaria, wu un seguimiento con ?l. ) [facility] [Provider Group] (Call to establish and follow up with a primary care provider. If you already have a primary care provider, please follow up with them. Llame para establecer y hacer un seguimiento con un proveedor de atenci?n primaria. Si ya tiene un proveedor de atenci?n primaria, wu un seguimiento con ?l. ) Stand Alone Forms: Work/School Release Discharge Date/Time: 09/10/24 07:34 Print Language: [place]
== END 2024-09-10 07:34 | disposition home or self-care (01) ==
PROVIDERS: Emergency Provider Emergency Medicine
DX: M25.511 Pain in right shoulder (principal)
CPT/HCPCS: 99284

== ENCOUNTER 2024-09-14 08:50 | Outpatient (AMB) | payer OTHER, SELFPAY ==
--- NOTE | 2024-09-14 08:55 | MHC.OFFVIS ---
Vital Signs 09/14/24 09:02 Height 5 ft 2 in Weight 179 lb BMI 32.7 Intake Visit Reasons: NewProb-Right shoulder pain Intake Note: Jovany is a 48 year old male who presents today for an evaluation of right shoulder pain. Patient reports his pain has been present for about a month. Denies injury. He has been attending PT however this has not been helping his symptoms. He was recently seen at [facility] on 09/10/24 for his shoulder pain. He has constant pain that radiates from his shoulder up to his ear and travels down to his hand. He has tingling sensation in his wrist. Limited ROM. Finds little relief acetaminophen. 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 He has not had any shoulder injury in the past. He was seen by PCP who referred him to physical therapy which did not provide him any relief. He was also seen at ER on 09/10/24 for his shoulder pain. He currently states he has limited ROM and constant pain in his shoulder that radiates up to his ear and travels down to his arm. His pain is aggravated with sleeping at night and working on exercises. ?He is unable to lift even light objects due to his pain. He also experiences a tingling sensation in his wrist. He finds mild relief with acetaminophen. [facility] Medical History Avascular necrosis of bone of right hip No pertinent past medical history Surgical History Hx of appendectomy History of surgery on left wrist Social History Household Members: Other Housing: Apartment Are you a primary restorative care technician to a significant other at home: No Do you presently have visiting nurse or other home services: No Alcohol intake: never Patient Tobacco Use Status: Never used Tobacco Second Hand Smoke Exposure: No Advance Directives Date on File: 06/28/23 service: No Review of Systems Const All systems reviewed & are unremarkable except as noted in HPI and below Physical Exam Vital Signs: BMI result Body Mass Index 32.7 Extrem Other: Right shoulder: Normal to inspection. Tenderness over the bicipital groove and along the deltoid region of the shoulder. Forward flexion to 90, external rotation to 90, Unable to perform IR. Significant pain RTC strength testing. Negative Bearden and cross body abduction. NVI. ? Office Procedures AMB Joint Injection/Aspiration Joint Injection/Aspiration Primary Site: right shoulder Prep: site was prepped using aseptic technique, ethochloride spray was applied and injection warnings given Injected: 80 mg of, DepoMedrol, with 8 mL of, 1% plain lidocaine and in the subcromial space Approach Used: posterolateral Procedure: The patient tolerated the procedure well and there was some relief with the local anesthesia Coding 12510 - Glenohumeral/Tronchanteric Bursa/Intraarticular Procedure code (CPT) selection complete Results Reviewed Results Reviewed: XR shoulder RT min 2V IMPRESSION: No evidence of acute fracture or dislocation of the right shoulder. Assessment & Plan Assessment & Plan (1) Impingement syndrome of right shoulder: Code(s): M75.41 - Impingement syndrome of right shoulder Category: Medical Plan We discussed options today, which include steroid injection. The patient did consent to move forward with the right shoulder injection, which was tolerated well. I recommended rest, ice, and elevation and OTC anti-inflammatories as needed for discomfort. An MRI of the right shoulder was ordered to further evaluate the integrity of RTC given the significant amount of pain and limitations on exam. If symptoms persist or worsens over the next 6-8 weeks, patient will contact the office, otherwise follow-up as needed. ? Orders: Orders MR shoulder RT wo con Today M77.8 - Other enthesopathies, not elsewhere classified Patient Instructions: Scribed for Marie Hampton PA-C, by Carlton Davis director medical science, on 09/14/2024 at 9:00 AM EST.? I, Marie Hampton PA-C, have personally reviewed and agree with the information entered by the scribe. Coding Level of Care Code Est Pt Level 3 (39490) Complex EM visit Add On G2211 Diagnoses Impingement syndrome of right shoulder M75.41 CPT Codes Coding - Joint 7: 57688 - Glenohumeral/Tronchanteric Bursa/Intraarticular ([id number])
[2024-09-14 09:02] VITALS: BMI 32.7
== END 2024-09-14 09:28 | disposition home or self-care (01) ==
PROVIDERS: Visit Provider Physician Assistant
DX: M75.41 Impingement syndrome of right shoulder (principal)
CPT/HCPCS: 20610; 99213

== ENCOUNTER → 2024-09-14 08:50 | Outpatient (BNVA) | payer OTHER, SELFPAY | PROVIDERS: Visit Provider Physician Assistant | DX: M75.41 Impingement syndrome of right shoulder (principal) | CPT/HCPCS: 20610; 99212; J1010; J2003 ==

== ENCOUNTER 2024-09-17 11:54 | Outpatient (RCR) | payer OTHER, SELFPAY ==
--- NOTE | 2024-08-25 10:26 | MHC.PT.EP ---
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 S/s consistent with referring dx and overlapping cervical derangement secondary to decreased cervical ROM, decreased R shoulder ROM, decreased R shoulder strength, pain, and impaired postural awareness. Recommend PT 2x/week for 6 weeks to address impairments, implement HEP, and optimize functional mobility. Frequency and Duration: The patient will be seen 2x/week for 6 weeks Short Term Goals: 3 weeks I with HEP Pt will demonstrate R shoulder flexion to 130 to facilitate reaching Fpc Goals: 6 weeks I with HEP and self management of sx Pt will be able to sleep through >75% of the night with pain <3/10 Pt will be able to reach into overhead cabinets with pain <3/10 Treatment Plan: Modalities to reduce pain, spasms and effusion. Manual therapy to restore motion and function. Therapeutic exercise to improve strength and flexibility. Neuromuscular re-education for posture and balance. Therapeutic activities to return to functional activities of daily living. Electronically signed by: Nissa Recio PT Please sign and return to therapist. Thank you for your referral.
--- NOTE | 2024-11-12 10:46 | MHC.PT.DC ---
[facility] [place] Office [place] Office [place] Office [address] [phone] F: [phone] F: [phone] F: [phone] F: [phone] Physical Therapy Discharge Report Diagnosis: impingement syndrome of R shoulder Date of Surgery: Date of Evaluation: 08/25/24 Date of Discharge: 11/12/24 Treatments to Date: 7 Cancellations to Date: 0 No Shows to Date: 0 Discharge Status: Independent with HEP Recommend MD Follow-up Discharge Summary: Pt with minimal gains in physical therapy and continued high pain levels. Pt was recommended to f/nolvia em MD Electronically signed by: Nissa Recio PT Please sign and return to therapist. Thank you for your referral.
== END 2024-11-12 10:46 | disposition home or self-care (01) ==
LOC: HO.PT 11:54
PROVIDERS: Visit Provider Orthopaedic Surgery
DX: M75.41 Impingement syndrome of right shoulder (principal)
CPT/HCPCS: 97110; 97140; 97161; 97530

== ENCOUNTER 2024-10-26 07:13 | Outpatient (REF) | payer OTHER, SELFPAY ==
--- NOTE | ~2024-10-26 | MR_ITS ---
EXAMINATION: MR SHOULDER WITHOUT CONTRAST RIGHT CLINICAL INFORMATION: Other enthesopathies, not elsewhere classified M77.8. Right shoulder pain since 2 months. No recent injury. Status post injection 1 month ago. COMPARISON: XR right shoulder 08/04/2024. TECHNIQUE: MRI of the shoulder without contrast was performed on a high-field scanner. FINDINGS: ROTATOR CUFF: Moderate supraspinatus and mild infraspinatus tendinosis. Focal bursal surface partial tearing through the posterior aspect of the supraspinatus tendon measuring up to 1.4 x 1.2 cm (AP x ML). Thin articular surface tendon fibers remain intact. No muscle atrophy or fatty infiltration. BICEPS: Intact. CORACOACROMIAL ARCH: The undersurface of the acromion is flat with tiny subacromial spurs. Mild acromioclavicular osteoarthritis. Fluid within the subacromial-subdeltoid bursa with adjacent edema, consistent with bursitis. LABRUM/CAPSULE: No labral tear. Intact joint capsule. GLENOHUMERAL JOINT/MARROW: Intact articular cartilage. No marrow edema or evidence of acute osseous injury. MR/MR shoulder RT wo con IMPRESSION: 1. Moderate supraspinatus and mild infraspinatus tendinosis. Focal bursal surface partial tearing through the posterior aspect of the supraspinatus tendon measuring 1.4 x 1.2 cm (AP x ML). Thin articular surface tendon fibers remaining intact. 2. Mild acromioclavicular osteoarthritis with tiny subacromial spurs. 3. Subacromial-subdeltoid bursitis. Electronically signed by: William Quintanilla MD 10/27/2024 10:41 AM EST
== END 2024-10-26 07:14 | disposition home or self-care (01) ==
LOC: HO.MRI 07:13
PROVIDERS: Visit Provider Physician Assistant
DX: M77.8 Other enthesopathies, not elsewhere classified (principal)
CPT/HCPCS: 73221

== ENCOUNTER 2024-12-16 09:16 | Outpatient (AMB) | payer OTHER, SELFPAY ==
--- NOTE | 2024-12-16 09:25 | A.OFFVIS_ITS ---
Vital Signs 12/16/24 09:26 Height 5 ft 2 in Weight 179 lb BMI 32.7 Intake Visit Reasons: OV- Right shoulder MRI review Intake Note: Jovany is a 49 year old 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 male who presents today for a right shoulder MRI review. IMPRESSION: 1. Moderate supraspinatus and mild infraspinatus tendinosis. Focal bursal surface partial tearing through the posterior aspect of the supraspinatus tendon measuring 1.4 x 1.2 cm (AP x ML). Thin articular surface tendon fibers remaining intact. 2. Mild acromioclavicular osteoarthritis with tiny subacromial spurs. 3. Subacromial-subdeltoid bursitis Dependency Case Manager Required: Yes Dependency Case Manager Name: [id number] Allergies No Known Allergies Allergy (Verified 12/16/24 09:43) HPI HPI OV- Right shoulder MRI review: Details: 49 yo male returns to the office today f/u mri right shoulder. 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 He has tried and failed PT and steroid injections. He has had RT LOLI with Dr Ennis with good outcomes. [facility] Medical History Avascular necrosis of bone of right hip No pertinent past medical history Surgical History Hx of appendectomy History of surgery on left wrist Social History Household Members: Other Housing: Apartment Are you a primary property caretaker to a significant other at home: No Do you presently have visiting nurse or other home services: No Alcohol intake: never Patient Tobacco Use Status: Never used Tobacco Second Hand Smoke Exposure: No Advance Directives Date on File: 06/28/23 service: No Review of Systems Const All systems reviewed & are unremarkable except as noted in HPI and below Physical Exam Vital Signs: BMI result Body Mass Index 32.7 Extrem Other: Right shoulder: Normal to inspection. Tenderness over the bicipital groove and along the deltoid region of the shoulder. Forward flexion to 90, external rotation to 90, Unable to perform IR. Significant pain RTC strength testing. Negative Bearden and cross body abduction. NVI. ? Results Reviewed Results Reviewed: IMPRESSION: 1. Moderate supraspinatus and mild infraspinatus tendinosis. Focal bursal surface partial tearing through the posterior aspect of the supraspinatus tendon measuring 1.4 x 1.2 cm (AP x ML). Thin articular surface tendon fibers remaining intact. 2. Mild acromioclavicular osteoarthritis with tiny subacromial spurs. 3. Subacromial-subdeltoid bursitis Assessment & Plan Assessment & Plan (1) Right rotator cuff tear: Code(s): M75.101 - Unspecified rotator cuff tear or rupture of right shoulder, not specified as traumatic Category: Medical Plan: We discussed the extent of the MRI and given that he continues to have limitations with daily activities along with pain and he has failed conservative management I encouraged him to make an appointment with Dr. Hayden to discuss potential surgical intervention. Patient is content with this plan and will make a follow-up and proceed accordingly. Coding Level of Care Code Est Pt Level 3 (11094) Complex EM visit Add On G2211 Diagnoses Right rotator cuff tear M75.101
[2024-12-16 09:26] VITALS: BMI 32.7
--- OUTSIDE RECORDS SUMMARY | 2024-12-16 10:19 | XMS_ITS | Clinical Summary ---
Author Organization [facility] ity Address [address] [place] [address] Care Team Providers Care Ammonium Nitrate Crystallizer Name Role Phone Unavailable Primary Care Provider Unavailabl e Social History Tobacco Use Types Packs/Day Years Used Date Smoking Tobacco: Never Assessed Sex and Gender Information Value Date Recorded Sex Assigned at Not on file Legal Sex Male 1:37 PM EDT Gender Identity Not on file Sexual Orientation Not on file Plan of Treatment Health Maintenance Due Date Last Done Comments DTaP,Tdap,and Td Vaccines (1 - Tdap) 1996 Hepatitis B Vaccines (1 of 3 - 19+ 3-dose series) 1996 Cholesterol Screening (Lipid Panel) 06/05/2024 Colorectal Cancer Screening: Colonoscopy 06/05/2024 Depression Screening 06/05/2024 HIV Screening 06/05/2024 Hepatitis C Screening 06/05/2024 Social Influencers of Health Screening 06/05/2024 COVID-19 Vaccine (2023-2 5 season) 2024 Influenza Vaccine (#1) 2024 HIB Vaccines Aged Out No longer eligi ble based on patient's age to complete this topic HPV Vaccines Aged Out No longer eligi ble based on patient's age to complete this topic Hepatitis A Vaccines Aged Out No long er eligible based on patient's age to complete this topic IPV Vaccines Aged Out No longer eligi ble based on patient's age to complete this topic MMR Vaccines Aged Out No longer eligi ble based on patient's age to complete this topic Meningococcal ACWY Vaccine Aged Out N o longer eligible based on patient's age to complete this topic Meningococcal B Vacine Aged Out No lo nger eligible based on patient's age to complete this topic Pneumococcal Vaccine: Pediat rics (0 to 5 Years) and At-Risk Patients (6 to 64 Years) Aged Out No longer eligible b ased on patient's age to complete this topic RSV Immunization Patients Un divina 20 months Aged Out No longer eligible b ased on patient's age to complete this topic Varicella Vaccines Aged Out No longer eligible based on patient's age to complete this topic
--- OUTSIDE RECORDS SUMMARY | 2024-12-16 10:19 | XMS_ITS | Clinical Summary ---
Author Organization [facility] Address [address] [place] [address] [address] [place] [address] Care Team Providers Care Mannequin Mold Maker Name Role Phone Unavailable Primary Care Provider Unavailabl e Allergies No known active allergies Medications amoxicillin (Amoxil) 500 MG capsule Take 4 caps 1 hour prior dental procedure 12 capsule Active Additional Information Patient not taking.Reported on 09/21/2024 Active Problems Problem Noted Date Diagnosed Date Fracture of root of tooth 09/21/2024 Advanced periodontitis 09/21/2024 Dental calculus 09/21/2024 Impacted third molar tooth 09/21/2024 Gingival bleeding 09/21/2024 Dental abscess 09/21/2024 Severe generalized gingival recession 09/21/2024 Retained dental root 07/27/2024 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 Dental caries 11/19/2023 Encounters Date Type Department Care Team Description 10/08/2024 Telephone [facility] [address] [place] [address] Afshin Frias DDS 09/21/2024 8:00 AM EST Office Visit [facility] [address] [place] [address] Monica Andrew Fracture of root of tooth (Primary Dx); Advanced periodontitis; Dental calculus; Retained dental root; Impacted third molar tooth; Gingival bleeding; Dental abscess; Severe generalized gingival recession from Last 3 Months Social History Tobacco Use Types Packs/Day Years Used Date Smoking Tobacco: Never Passive Smoke Exposure: Never Smokeless Tobacco: Never Tobacco Cessation:Counseling Given: Not Answered Alcohol Use Standard Drinks/Week Comments Never 0 (1 standard drink = 0.6 oz pur e alcohol) Sex and Gender Information Value Date Recorded Sex Assigned at Male 11/19/2023 9:44 AM EST Legal Sex Male 9:37 AM EST Gender Identity Male 11/19/2023 9:44 AM EST Sexual Orientation Straight 11/19/2023 9: 44 AM EST Last Filed Vital Signs Vital Sign Reading Time Taken Comments Blood Pressure 122/74 09/21/2024 7:58 AM EST Pulse 72 11/19/2023 9:58 AM EST Temperature - - Respiratory Rate - - Oxygen Saturation - - Inhaled Oxygen Concentration - - Weight - - Height - - Body Mass Index - - Plan of Treatment Health Maintenance Due Date Last Done Comments CT Colonography 1977 Colonoscopy 1977 Colorectal Cancer Screening 1977 Dental Prophylaxis 1977 Depression Screening 1977 FIT DNA/Cologuard 1977 FIT 1977 FOBT 1977 HIV Screening 1977 Lipid Panel 1977 SDOH Screening 1977 Sigmoidoscopy 1977 Alcohol/Substance Use Screening 1989 Family Planning (PISQ) 1992 Hepatitis C Screening 1995 DTaP/Tdap/Td Vaccines (1 - Tdap) 1996 Hepatitis B Vaccines (1 of 3 - 19+ 3-dose series) 1996 COVID-19 Vaccine ( - 2023-2 5 season) 2024 Influenza Vaccine (#1) 2024 Dental Oral Exam 03/22/2025 09/21/2024 Tobacco Screening 07/27/2025 07/27/2024 Dental X-Ray: Bitewings 09/22/202520 24, 05/21/2024 Dental X-Ray: Full Mouth 09/22/2027 024, 11/19/2023 Zoster Vaccines (1 of 2) 2027 RSV Patients and Patients Aged 60 years or older (1 - 1-dose 75+ series) 2052 HIB Vaccines Aged Out No longer eligi [...] patient's age to complete this topic Meningococcal Vaccine Aged Out No palmira cricket eligible based on patient's age to complete this topic Pneumococcal Vaccine: Pediatrics (0 to 5 Years) and At-Risk Patients (6 to 49) Years) Aged Out No longer eligible b ased on patient's age to complete this topic RSV under 20 months Aged Out No longe r eligible based on patient's age to complete this topic Rotavirus Vaccines Aged Out No longer eligible based on patient's age to complete this topic Procedures Procedure Name Priority Date/Time Associated Diagnosis Comments PERIODIC ORAL EVALUATION - ESTABLISHED PATIENT Routine 09/21/2024 8:00 AM EST ORAL HYGIENE INSTRUCTIONS Routine 2023 8:00 AM EST Fracture of root of tooth Advanced periodontitis Dental calculus Retained dental root Impacted third molar tooth Gingival bleeding DIAGNOSTIC - DIAGNOSTIC IMAGING - INTRAORAL - COMPREHENSIVE SERIES OF RADIOGRAPHIC IMAGES Routine 09/21/2024 8:00 AM EST Fracture of root of tooth Advanced periodontitis Dental calculus Retained dental root Impacted third molar tooth Gingival bleeding 27 F COMPOSITE FILLING Routine 12:00 AM EST 21 MOD COMPOSITE FILLING Routine 024 12:00 AM EST 17 O AMALGAM FILLING Routine 09/21/2024 12:00 AM EST 8 FIXED PARTIAL DENTURE - ABUTMENT CROWN Routine 09/21/2024 12:00 AM EST 11 FIXED PARTIAL DENTURE - ABUTMENT CROWN Routine 09/21/2024 12:00 AM EST 10 FIXED PARTIAL DENTURE - PONTIC Routine 09/21/2024 12:00 AM EST 9 FIXED PARTIAL DENTURE - PONTIC Routine 09/21/2024 12:00 AM EST 11 ROOT CANAL Routine 09/21/2024 12:00 AM EST 10 EXTRACTION Routine 09/21/2024 12:00 AM EST 9 EXTRACTION Routine 09/21/2024 12:00 AM EST 30 EXTRACTION Routine 09/21/2024 12:00 AM EST 19 EXTRACTION Routine 09/21/2024 12:00 AM EST 18 EXTRACTION Routine 09/21/2024 12:00 AM EST 14 EXTRACTION Routine 09/21/2024 12:00 AM EST 7 FL COMPOSITE FILLING Routine 12:00 AM EST 3 EXTRACTION Routine 09/21/2024 12:00 AM EST 1 EXTRACTION Routine 09/21/2024 12:00 AM EST 11 PREFABRICATED POST AND CORE IN ADDITION TO CROWN Routine 09/21/2024 12:00 AM EST 8 RESTORATIVE - OTHER RESTORATIVE SERVICES - CORE BUILDUP, INCLUDING ANY PINS WHEN REQUIRED Routine 09/21/2024 12:00 AM EST from Last 3 Months Insurance DENTAL-[facility] MEDICAID STAND ADULT
== END 2024-12-16 09:53 | disposition home or self-care (01) ==
PROVIDERS: Visit Provider Physician Assistant
DX: M75.101 Unspecified rotator cuff tear or rupture of right shoulder, not specified as traumatic (principal)
CPT/HCPCS: 99213; G2211

== ENCOUNTER → 2024-12-16 09:16 | Outpatient (BNVA) | payer OTHER, SELFPAY | PROVIDERS: Visit Provider Physician Assistant | DX: M75.101 Unspecified rotator cuff tear or rupture of right shoulder, not specified as traumatic (principal) | CPT/HCPCS: 99212 ==

== ENCOUNTER 2025-01-28 10:14 | Outpatient (AMB) | payer OTHER, SELFPAY ==
--- NOTE | 2025-01-28 10:34 | A.OFFVIS_ITS ---
Intake Visit Reasons: OV-Discuss right RTC repair-MRI done Intake Note: Jovany is a 49 year old 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 male who presents today for a follow up of his right shoulder. He was last seen with Marie who referred him for discussion of surgical intervention. Allergies No Known Allergies Allergy (Verified 12/16/24 09:43) HPI HPI OV-Discuss right RTC repair-MRI done: Details: Jovany is a 49 year old 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 male who presents today for a follow up of his right shoulder. He was last seen with Marie who referred him for discussion of surgical intervention. The patient is a 49-year-old male presenting with rotator cuff pathology. There is a concern about potential deterioration or the requirement for surgical intervention. MRI showed that the tendon remains intact and is not ruptured. Physical therapy in conjunction with at-home exercises are the current management strategies. The condition has affected his daily activities significantly, as noted in the discourse, and he highlighted challenges due to his living situation. He works as a [employer] Medical History Avascular necrosis of bone of right hip No pertinent past medical history Surgical History Hx of appendectomy History of surgery on left wrist Social History Household Members: Other Housing: Apartment Are you a primary director career services to a significant other at home: No Do you presently have visiting nurse or other home services: No Alcohol intake: never Patient Tobacco Use Status: Never used Tobacco Second Hand Smoke Exposure: No Advance Directives Date on File: 06/28/23 service: No Physical Exam Extrem Other: 03/08 EC + Hawkin's and Neer 45/90/140/L5 Office Procedures Joint Inj/Aspir; Non-Pain Clin Joint Injection/Drain Details: Injected 1 mL of Decadron and 3 mL 1% lidocaine and 3 mL of 0.25% Marcaine. Site was prepped using aseptic technique. Patient tolerated the procedure well. Shoulders, Hips, Knees, Shoulder Injection Large joint 86821: Right Shoulder Coding Procedure code (CPT) selection complete Results Reviewed Results Reviewed: IMPRESSION: 1. Moderate supraspinatus and mild infraspinatus tendinosis. Focal bursal surface partial tearing through the posterior aspect of the supraspinatus tendon measuring 1.4 x 1.2 cm (AP x ML). Thin articular surface tendon fibers remaining intact. 2. Mild acromioclavicular osteoarthritis with tiny subacromial spurs. 3. Subacromial-subdeltoid bursitis Assessment & Plan Assessment & Plan (1) Partial thickness rotator cuff tear: Code(s): M75.110 - Incomplete rotator cuff tear or rupture of unspecified shoulder, not specified as traumatic Category: Medical Plan: I discussed with the patient that the rotator cuff is not completely ruptured and surgery is not necessary at this stage. I injected his right shoulder. Emphasis was placed on physical therapy and at-home exercises as the management plan. There was an understanding of avoiding further stress or injury to the area. Lifestyle limitations due to his current living situation were acknowledged, and I informed the patient about continued symptomatic monitoring. The discussion did not cover specific risks or success rates, but reassurance was provided that non-operative treatment should be effective. Ibuprofen was sent to his pharmacy The focus for the patient?s rotator cuff pathology is on non-surgical management since the tendon is intact and not completely ruptured. Current management strategies include physical therapy and exercises to be done at home. Monitoring of symptoms and re-evaluation for any future changes remains essential. - Engage in prescribed physical therapy. - Perform recommended home exercises regularly. - Avoid activities that may strain the rotator cuff further. - Monitor symptoms and notify if there are changes or worsening of the current condition. Patient was informed and verbally consented to the use of an ambient scribe for clinic note documentation during this visit. Medications: New ibuprofen 800 mg PO TID PRN 90 tabs 1RF pain Coding Level of Care Code Est Pt Level 3 (37713) Diagnoses Partial thickness rotator cuff tear M75.110 CPT Codes Shoulders, Hips, Knees, - Shoulder Injection Large joint 32896: Right Shoulder ([id number])
== END 2025-01-28 11:07 | disposition home or self-care (01) ==
LOC: HO.HOS 10:15
PROVIDERS: Visit Provider Orthopaedic Surgery
DX: M75.111 Incomplete rotator cuff tear or rupture of right shoulder, not specified as traumatic (principal)
CPT/HCPCS: 20610; 99213

== ENCOUNTER → 2025-01-28 10:14 | Outpatient (BNVA) | payer OTHER, SELFPAY | PROVIDERS: Visit Provider Orthopaedic Surgery | DX: M75.111 Incomplete rotator cuff tear or rupture of right shoulder, not specified as traumatic (principal) | CPT/HCPCS: 20610; 99212; J0665; J1100; J2003 ==

== ENCOUNTER 2025-02-01 19:47 | Emergency (ER) | payer OTHER, SELFPAY ==
--- NOTE | ~2025-02-01 | XR_ITS ---
CLINICAL HISTORY: right shoulder pain 3 view right shoulder Comparison: X-rays of the right shoulder from 08/04/2024 Findings: Mild osteoarthritis of the right AC joint. Mild osteoarthritis of the right glenohumeral joint with [id number] effusion by radiographs. No acute fracture. No dislocation. Mild atelectasis in the [id number]. IMPRESSION: 1. 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 2. No acute fracture or dislocation. 3. Mild osteoarthritis of the right AC joint. This document has been electronically signed by: Charles Nguyen MD on 02/01/2025 20:34:14
[2025-02-01 19:52] VITALS: BP 113/67; PULSE 84; RESP 14; TEMP 36.9; O2SAT 93; BMI 33.2
--- NOTE | 2025-02-01 20:08 | ED.GENADULT ---
HPI - General Adult General Chief complaint: Extremity Problem Stated complaint: right shoulder pain extremely / injection 01/28 Time Seen by Provider: 02/01/25 21:53 Source: patient Limitations: language barrier History of Present Illness ED Provider: Jessica Rowell PA-C HPI narrative: 49-year-old male with chronic shoulder pain, presents with shoulder pain. Patient states his discomfort has worsened over the past 2 days. Over the past 3-4 months, his pain began. He has been following up with his orthopedic surgeon. He was seen on the had a steroid injection, however he still is having discomfort. Patient states he had an outpatient MRI, the surgeon told him surgical intervention was not an option. Patient has limited range of motion of the right upper extremity in lateral raise. Related Data Previous Rx's ?Medication ?Instructions ?Recorded walker #1 ea 05/22/23 acetaminophen 325 mg tablet 325 mg PO QID #30 tabs 09/10/24 (Tylenol) amoxicillin 500 mg tablet 2,000 mg (4 x 500 mg) PO ONCE take 09/15/24 4 tabs by mouth 1 hour prior to dental ppx 1 day #4 tabs ibuprofen 800 mg tablet 800 mg PO TID PRN pain #90 tabs 01/28/25 ketorolac 10 mg tablet 10 mg PO Q6H PRN pain #20 tabs 02/02/25 methocarbamol 750 mg tablet 1,500 mg (2 x 750 mg) PO Q8H PRN 02/02/25 pain, moderate #20 tabs methylprednisolone 4 mg tablets in 4 mg PO QAM #21 ea 02/02/25 a dose pack (Medrol (Zurdo)) Allergies Allergy/AdvReac Type Severity Reaction Status Date / Time No Known Allergies Allergy Verified 02/01/25 20:07 Review of Systems Review of Systems: Yes all other systems are reviewed and are negative Constitutional: Constitutional: Denies fatigue and Denies fever(s) Cardiovascular: Cardiovascular: Denies chest pain and Denies dyspnea Respiratory: Respiratory: Denies dyspnea Musculoskeletal: Musculoskeletal: Reports arthralgias and Denies joint swelling Endocrine: Endocrine: Denies fatigue PMF Past Medical History Attestation statement: The following information was validated with the patient. Medical History Avascular necrosis of bone of right hip No pertinent past medical history Surgical History Hx of appendectomy History of surgery on left wrist Social History Social History Household Members: Other Housing: Apartment Are you a primary care team coordinator scheduler to a significant other at home: No Do you presently have visiting nurse or other home services: No Alcohol intake: never Patient Tobacco Use Status: Never used Tobacco Smoked in Last 30 Days: No Second Hand Smoke Exposure: No Use of substances other than those prescribed or required for medical reasons: No Advance Directives: Yes Advance Directives on File: Yes Advance Directives Date on File: 06/28/23 Do you have a plan to hurt others: No Plan service: No Physical Exam ED Vital Signs: Vital Signs - 24 hr 02/01/25 19:52 02/01/25 22:00 02/02/25 00:07 Temperature 98.4 F 97.8 F 97.6 F Pulse Rate 84 72 75 Respiratory Rate 14 18 16 Blood Pressure 113/67 137/82 126/83 Pulse Oximetry 93 96 96 Oxygen Delivery Method Room Air Room Air Room Air 02/02/25 00:15 Temperature 97.6 F Pulse Rate 75 Respiratory Rate 16 Blood Pressure 126/83 Pulse Oximetry 96 Oxygen Delivery Method Room Air BMI result Body Mass Index 33.2 Const Other: Alert well-appearing Orientation/consciousness: patient oriented x3 Resp Effort & Inspection: normal respiratory effort Cardio Other: Normal peripheral perfusion Skin Other: Warm dry no rash Neuro General: patient oriented x3, gait normal, no focal motor deficits and CN's II-XI intact bilaterally Extrem Other: Tenderness over right bicipital groove. There was no swelling warmth or erythema noted over the shoulder joint, he can flex and extend freely from the elbow, he can perform straight arm raise to some degree but not fully Psych Other: Cooperative Course Course Course Narrative: RME: 49-year-old male with torn tendong in right shoulder presents to the ED for shoulder pain. patient received steroid injection on 01/29 and still has pain. no riht upper extremity sweling. xray ordered Medications Administered Discontinued Medications Generic Name Dose Route Start Last Admin Trade Name Freq PRN Reason Stop Dose Admin Ketorolac Tromethamine 15 mg 02/01/25 23:21 02/01/25 23:25 Ketorolac Tromethamine 15 Mg/Ml Vial IM 02/01/25 23:22 15 mg ONCE ONE Administration Medical Decision Making Medical Decision Making MDM Narrative: 49-year-old male with chronic shoulder pain, presents with shoulder pain. Patient states his discomfort has worsened over the past 2 days. Over the past 3-4 months, his pain began. He has been following up with his orthopedic surgeon. He was seen on the had a steroid injection, however he still is having discomfort. Patient states he had an outpatient MRI, the surgeon told him surgical intervention was not an option. Patient has limited range of motion of the right upper extremity in lateral raise. Problem: Chronic shoulder pain History: Per patient I have considered the following differential diagnoses: Fracture, dislocation, arthritis, septic joint, frozen shoulder Plan: X-ray obtained from triage , he has arthritis and a subtle effusion. This is not a septic joint, he does have range of motion, although it was decreased secondary to pain. He has an orthopedist to follow up with. We will send with muscle relaxant and anti-inflammatories. I have independently reviewed the following tests: X-ray right shoulder:MPRESSION: 1. 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 2. No acute fracture or dislocation. 3. Mild osteoarthritis of the right AC joint. Discharge Plan Discharge Clinical Impression: Arthritis of shoulder Patient Disposition: Home, Self-Care Instructions: Osteoarthritis (ED) Additional Instructions: You were found to have arthritic changes of the shoulder joint. These are degenerative/inflammatory changes associated with chronic use of the joint itself. You need to continue following up with your orthopedic surgeon. Use the ketorolac as directed take it with food. Use the Medrol Dosepak as directed take it with food. These are both anti-inflammatories. Take the methocarbamol as needed, this is a muscle relaxant. It will cause drowsiness do not drive or operate machinery while taking the medication. Prescriptions: New methocarbamol 750 mg tablet 1,500 mg PO Q8H PRN (Reason: pain, moderate) Qty: 20 0RF methylprednisolone [Medrol (Zurdo)] 4 mg tablets,dose pack 4 mg PO QAM Qty: 21 0RF Rx Instructions: Take per package instructions ketorolac 10 mg tablet 10 mg PO Q6H PRN (Reason: pain) Qty: 20 0RF Rx Instructions: maximum total duration of 5 days from all oral, intranasal, or parenteral formulations. The patient intramuscular dose of Toradol here in the emergency department No Action (DME) ash Rodriguezc See Rx Instructions .MEDSUPPLY Qty: 1 0RF Rx Instructions: Folding Front wheeled walker amoxicillin 500 mg tablet 2,000 mg PO ONCE 1 Days Qty: 4 0RF acetaminophen [Tylenol] 325 mg tablet 325 mg PO QID Qty: 30 0RF ibuprofen 800 mg tablet 800 mg PO TID PRN (Reason: pain) Qty: 90 1RF Interventions: ED Discharge Assessment Last Done: 02/02/25 00:15 Discharge Date/Time: 02/02/25 00:16 Print Language: Luxembourgish
--- OUTSIDE RECORDS SUMMARY | 2025-02-01 21:22 | XMS_ITS | Clinical Summary ---
Author Organization [employer] [facility] ity Address [address] [place] [address] Care Team Providers Care Distilling Department Supervisor Name Role Phone Unavailable Primary Care Provider [...]
[2025-02-01 22:00] VITALS: BP 137/82; PULSE 72; RESP 18; TEMP 36.6; O2SAT 96
[2025-02-01] MEDS: Ketorolac Tromethamine 15 MG/ML VIAL IM (23:25)
[2025-02-02 00:07] VITALS: BP 126/83; PULSE 75; RESP 16; TEMP 36.4; O2SAT 96
[2025-02-02 00:15] VITALS: BP 126/83; PULSE 75; RESP 16; TEMP 36.4; O2SAT 96
== END 2025-02-02 00:16 | disposition home or self-care (01) ==
PROVIDERS: Emergency Provider Emergency Medicine
DX: M19.011 Primary osteoarthritis, right shoulder (principal); M25.511 Pain in right shoulder
CPT/HCPCS: 73030; 96372; 99284; J1885

== ENCOUNTER → 2025-02-01 20:12 | Outpatient (BNV) | payer OTHER, SELFPAY | PROVIDERS: Visit Provider Radiology Neuroradiology | DX: M25.511 Pain in right shoulder (principal) | CPT/HCPCS: 73030 ==

== ENCOUNTER 2025-05-17 16:36 | Emergency (ER) | payer SELFPAY ==
--- NOTE | ~2025-05-17 | XR_ITS ---
CLINICAL HISTORY: acute on chronic pain 3 view right shoulder Comparison: 02/01/2025 Findings: No fractures or dislocations. Mild degenerative change of the glenohumeral and acromioclavicular joints. No erosions. No radiopaque foreign body. IMPRESSION: 1. No acute findings 2. Mild degenerative changes. This document has been electronically signed by: Lamont Ha MD on 05/17/2025 18:05:05
[2025-05-17 16:39] VITALS: BP 117/72; PULSE 71; RESP 16; TEMP 36.3; O2SAT 97; BMI 31.6
--- NOTE | 2025-05-17 16:51 | ED_ITS ---
HPI - Extremity Problem General Chief complaint: Extremity Injury, Upper Stated complaint: rt shoulder pain Time Seen by Provider: 05/17/25 18:14 Limitations: language barrier (video branding specialist) History of Present Illness HPI Narrative: 49-year-old male presents to the emergency department complaining of right shoulder pain. Patient states he has had problems with his right shoulder in the past and states that this is a recurrent issue. 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 He is right arm dominant. He denies any paresthesias or paralysis. Patient states he is having more pain to the right side of his neck and shoulder than normal. He denies any weakness. No direct trauma. He has not tried any medication for this. He has not seen anybody for follow up. Related Data Previous Rx's ?Medication ?Instructions ?Recorded walker #1 ea 05/22/23 acetaminophen 325 mg tablet 325 mg PO QID #30 tabs 05/27 (Tylenol) amoxicillin 500 mg tablet 2,000 mg (4 x 500 mg) PO ONC E take 09/15/24 4 tabs by mouth 1 hour prior to dental ppx 1 day #4 tabs ibuprofen 800 mg tablet 800 mg PO TID PRN pain #90 t abs 01/28/25 ketorolac 10 mg tablet 10 mg PO Q6H PRN pain #20 ta bs 02/02/25 methocarbamol 750 mg tablet 1,500 mg (2 x 750 mg) PO Q 8H PRN 02/02/25 pain, moderate #20 tabs methylprednisolone 4 mg tablets in 4 mg PO QAM #21 ea 02/02/25 a dose pack (Medrol (Zurdo)) dexamethasone 2 mg tablet 2 mg PO BID #10 tabs 5 methocarbamol 750 mg tablet 750 mg PO TID PRN muscle s pasm #20 05/17/25 tabs naproxen 500 mg tablet 500 mg PO BID PRN pain 7 day s #14 05/17/25 tabs Allergies Allergy/AdvReac Type Severity Reaction Status Date / Time No Known Allergies Allergy Verified 05/17/25 16:44 Review of Systems Musculoskeletal: Musculoskeletal: Denies back pain, Reports arthralgias, Denies numbness and Denies tingling Neurologic: Denies numbness and Denies tingling PMFSH Past Medical History Medical History Avascular necrosis of bone of right hip No pertinent past medical history Surgical History Hx of appendectomy History of surgery on left wrist Social History Social History Household Members: Other Housing: Apartment Are you a primary intensive care unit nurse to a significant other at home: No Do you presently have visiting nurse or other home services: No Alcohol intake: never Patient Tobacco Use Status: Never used Tobacco Second Hand Smoke Exposure: No Advance Directives: Yes Advance Directives on File: Yes Advance Directives Date on File: 06/28/23 Do you have a plan to hurt others: No Plan service: No Physical Exam Vital Signs: Vital Signs: Last Vital Signs Temp 97.3 F 05/17/25 16:39 Pulse 71 05/17/25 16:39 Resp 16 05/17/25 16:39 BP 117/72 05/17/25 16:39 Pulse Ox 97 05/17/25 16:39 O2 Del Method Room Air 05/17/25 16:39 BMI result Body Mass Index 31.6 Const: General: cooperative, alert and awake Neck: Other: No spinous, paraspinous or paravertebral tenderness. Moderate spasms of the ri ght trapezius muscles. Resp: Other: Lung sounds clear throughout Cardio: Rate: regular rate Rhythm: regular rhythm Back/Spine/Pelvis: Other: Paradi Operator is 5/5 bilaterally. Full range of motion of all joints except right shoulder secondary to pain. There is mild right bicipital groove tenderness. There is positive right empty can test. Abduction and adduction is intact. Radial pulses are +2 and equal bilaterally. Capillary refills less than 2 seconds. Course Course Course Narrative: 05/17/25 [id number] MARILU Renee This is a Rapid Medical Examination (RME) performed by Neeraj Barnes PA-C in triage. Full HPI, ROS, assessment and treatment plan per primary provider in the Main ED. Hx: 49 yo M here for eval of acute on chronic right shoulder pain. Completed physical therapy recently without improvement. Unable to lift his right arm. Denies numbness/tingling. No new injury or trauma. No PCP to follow up with. Plan: xrs Medical Decision Making Medical Decision Making MDM Narrative: 49-year-old male with recurrent right shoulder injury likely due to overuse and repetitive injury. He denies any new injury and confirms that this is the same symptoms and he has had in the past. X-ray does not reveal any acute process.Patient agreeable to course of steroids, naproxen and Robaxin. Patient will follow up with orthopedic referral. Reviewed all discharge instructions with the patient branding specialist. No further questions at this time. Differential Diagnosis Differential Diagnoses: The differential diagnosis associated with the presentation includes Bursitis Tendonitis Rotator cuff tear Muscle spasm Radiology Impression Discussion of test interpretation with radiology: I have reviewed the radiologist's reading. Prescription Management I considered prescription management with: Pain Medication Discharge Plan Discharge Clinical Impression: Muscle strain of right shoulder, Bursitis and tendinitis of shoulder region Patient Disposition: Home, Self-Care Instructions: Muscle Strain (ED) Additional Instructions: Rest. Avoid strenuous activity. Warm compresses to the affected area. Decadron as directed. This is a steroid. This will help with the pain and inflammation. Naproxen as directed. Take with food. This will help with pain and infl ammation. Robaxin as directed. This is a mild muscle relaxer that will help relax muscles. Follow up with the orthopedic referral. Follow-up with your primary care provider. Call this week to schedule a follow- up appointment. Return to the emergency department if you have any worsening of symptoms, or any concerns. Get well soon! Prescriptions: New dexamethasone 2 mg tablet 2 mg PO BID Qty: 10 0RF methocarbamol 750 mg tablet 750 mg PO TID PRN (Reason: muscle spasm) Qty: 20 0RF naproxen 500 mg tablet 500 mg PO BID PRN (Reason: pain) 7 Days Qty: 14 0RF Rx Instructions: Take with food. No Action (DME) walker Misc See Rx Instructions .MEDSUPPLY Qty: 1 0RF Rx Instructions: Folding Front wheeled walker amoxicillin 500 mg tablet 2,000 mg PO ONCE 1 Days Qty: 4 0RF acetaminophen [Tylenol] 325 mg tablet 325 mg PO QID Qty: 30 0RF methocarbamol 750 mg tablet 1,500 mg PO Q8H PRN (Reason: pain, moderate) Qty: 20 0RF methylprednisolone [Medrol (Zurdo)] 4 mg tablets,dose pack 4 mg PO QAM Qty: 21 0RF Rx Instructions: Take per package instructions ketorolac 10 mg tablet 10 mg PO Q6H PRN (Reason: pain) Qty: 20 0RF Rx Instructions: maximum total duration of 5 days from all oral, intranasal, or parenteral formulations. The patient intramuscular dose of Toradol here in the emergency department ibuprofen 800 mg tablet 800 mg PO TID PRN (Reason: pain) Qty: 90 1RF [place] [facility] [place] [facility] [facility] [place] Group[place] Referral Note: chronic right shoulder pain Print Language: Syriac
[2025-05-17 18:56] VITALS: BP 117/72; PULSE 71; RESP 16; TEMP 36.3; O2SAT 97
== END 2025-05-17 18:56 | disposition home or self-care (01) ==
PROVIDERS: Emergency Provider Emergency Medicine
DX: S46.911A Strain of unspecified muscle, fascia and tendon at shoulder and upper arm level, right arm, initial encounter (principal); X58.XXXA Exposure to other specified factors, initial encounter; Y93.9 Activity, unspecified; Y92.9 Unspecified place or not applicable; Y99.9 Unspecified external cause status; M25.511 Pain in right shoulder; M77.8 Other enthesopathies, not elsewhere classified
CPT/HCPCS: 73030; 99282; 99283; J8540

== ENCOUNTER → 2025-05-17 16:45 | Outpatient (BNV) | payer OTHER, SELFPAY | PROVIDERS: Emergency Provider Emergency Medicine; Visit Provider Radiology Vascular & Interventional Radiology | DX: M25.511 Pain in right shoulder (principal) | CPT/HCPCS: 73030 ==

== ENCOUNTER 2025-06-30 20:03 | Emergency (ER) | payer MEDICAID, SELFPAY ==
[2025-06-30 20:14] VITALS: BP 147/78; PULSE 93; RESP 16; TEMP 36.7; O2SAT 98; BMI 31.2
--- NOTE | 2025-06-30 20:14 | ED_ITS ---
HPI - General Adult General Chief complaint: Skin/Abscess/Foreign Body Stated complaint: itchy/weird feeling in rt leg Time Seen by Provider: 06/30/25 23:53 Source: patient and community relations coordinator Mode of arrival: ambulatory Limitations: no limitations History of Present Illness ED Provider: DR. Mistry HPI narrative: 49-year-old male came in for evaluation of generalized body itching and hives more under his bilateral armpits and groin area symptoms started 2 days ago. Declined starting new medication, no known history of food allergy recently ate shrimp 4 days ago, , no change in daily routine, no sick contacts, no fever, no chills, sexually active with 1 person with no concern of STDs. No difficulty breathing, no tongue swelling or lip swelling. Related Data Previous Rx's ?Medication ?Instructions ?Recorded walker #1 ea 05/22/23 acetaminophen 325 mg tablet 325 mg PO QID #30 tabs 05/27 (Tylenol) amoxicillin 500 mg tablet 2,000 mg (4 x 500 mg) PO ONC E take 09/15/24 4 tabs by mouth 1 hour prior to dental ppx 1 day #4 tabs ibuprofen 800 mg tablet 800 mg PO TID PRN pain #90 t abs 01/28/25 ketorolac 10 mg tablet 10 mg PO Q6H PRN pain #20 ta bs 02/02/25 methocarbamol 750 mg tablet 1,500 mg (2 x 750 mg) PO Q 8H PRN 02/02/25 pain, moderate #20 tabs methylprednisolone 4 mg tablets in 4 mg PO QAM #21 ea 02/02/25 a dose pack (Medrol (Zurdo)) dexamethasone 2 mg tablet 2 mg PO BID #10 tabs 5 methocarbamol 750 mg tablet 750 mg PO TID PRN muscle s pasm #20 05/17/25 tabs naproxen 500 mg tablet 500 mg PO BID PRN pain 7 day s #14 05/17/25 tabs diphenhydramine HCl 25 mg capsule 25 mg PO TID PRN itc socrates #30 caps 07/01/25 (Benadryl) prednisone 20 mg tablet 20 mg PO BID #10 tabs Allergies Allergy/AdvReac Type Severity Reaction Status Date / Time No Known Allergies Allergy Verified 06/30/25 20:15 Review of Systems Review of Systems: All other systems are reviewed and are negative Constitutional: Reports as per HPI and Reports no additional constitutional complaints Eyes: Reports as per HPI and Reports no additional eye complaints Reports system reviewed and no additional complaints, except as documented Cardiovascular: Reports as per HPI and Reports no additional cardiovascular complaints Respiratory: Reports as per HPI and Reports no additional respiratory complaints Gastrointestinal: Reports as per HPI and Reports no additional gastrointestinal complaints Genitourinary: Reports no additional female genitourinary complaints Musculoskeletal: Reports no additional musculoskeletal complaints Skin/Breast: Reports system reviewed and no additional complaints, except as docu Psychiatric: Reports no additional psychiatric complaints Endocrine: Reports no additional endocrine complaints Hematologic/Lymphatic: Reports no additional hematologic/lymphatic complaints Allergic/Immunologic: Reports no additional allergic/immunologic complaints Reports system reviewed and no additional complaints, except as documented and Reports Abnormal speech present [facility] Past Medical History Medical History Avascular necrosis of bone of right hip No pertinent past medical history Surgical History Hx of appendectomy History of surgery on left wrist Social History Social History Household Members: Other Housing: Apartment Are you a primary healthcare liaison to a significant other at home: No Do you presently have visiting nurse or other home services: No Alcohol intake: never Patient Tobacco Use Status: Never used Tobacco Second Hand Smoke Exposure: No Advance Directives: Yes Advance Directives on File: Yes Advance Directives Date on File: 06/28/23 service: No Physical Exam ED Vital Signs: Vital Signs - 24 hr 06/30/25 20:14 Temperature 98.1 F Pulse Rate 93 Respiratory Rate 16 Blood Pressure 147/78 H Pulse Oximetry 98 Oxygen Delivery Method Room Air BMI result Body Mass Index 31.2 Vital signs have been reviewed and appear to be correct. Blood pressure elevated. Heart rate normal. Respiratory rate normal. Temperature normal. Oxygen saturation normal. Appearance: Alert. Oriented X3. No acute distress. Head: Normal external exam. Normocephalic. Atraumatic. No Cohen signs noted. No raccoon eyes noted Eyes: PERRLA. EOMI. Conjunctiva and sclera normal. Eyelids normal. ENT: TM's Normal. Pharynx normal. Uvula midline. Moist mucous membranes. No trismus noted. No drooling noted. No muffled voice noted. Neck: Normal inspection. Neck supple. FROM. No adenopathy. Thyroid Normal. No meningeal signs. No neck mass noted. CVS: Normal heart rate and rhythm. Heart sound normal. No murmurs noted. Pulses normal throughout. Respiratory: No respiratory distress. Painless inspiration. Breath sounds normal. No wheezes/rales/rhonchi noted. Chest nontender. No accessory muscle usage noted or decreased air movement noted. Abdomen: Soft and nontender. Bowel sounds normal in all 4 quadrants. No distention noted. No organomegaly noted. No visible injury noted. Back: No CVA tenderness. Full range of motion noted. Skin: Skin warm and dry. Normal skin color. Normal skin turgor. No rashes/lesions/lacerations noted. No hives is appreciated on the exam. Extremities: No lower extremity edema. Extremities exhibit normal range of motion. Extremities nontender. Neuro: Oriented X 3. Cranial nerve exam: II-XII are grossly intact No motor deficit. No sensory deficit. Reflexes normal. Course Course Course Narrative: This is an RME: Additional HPI, ROS, PE not included below will be deferred to primary provider. RME assessment and note performed by: Krista Fuentes PA-C This is a [id number]-male who presents to the Er with complaints of itchiness throughout his entire body x 5 days. Reporting that he has alot of itchiness in his groin. Reporting a significant excoritations in his private regions. No new soaps, lotions, or detergents. Reports that he had shrimp 5 days ago and believes that this caused him to have the itchiness. Unable to visualize rash due to limited privacy in triage. Reevaluation(s) Reevaluation #1: Pruritus of unclear etiology. Will start the patient on course of prednisone and Benadryl. Time: 00:18 Medical Decision Making Differential Diagnosis Differential Diagnoses: The differential diagnosis associated with the presentation includes (Allergic reaction, STDs, hives of unclear etiology.) Admission/Observation Consideration of admission/observation: Escalation of care including admission/observation considered Discharge Plan Discharge Clinical Impression: Pruritus Patient Disposition: Home, Self-Care Instructions: Itchy Skin (ED) Prescriptions: New prednisone 20 mg tablet 20 mg PO BID Qty: 10 0RF diphenhydramine HCl [Benadryl] 25 mg capsule 25 mg PO TID PRN (Reason: itching) Qty: 30 0RF No Action (DME) walker Misc See Rx Instructions .MEDSUPPLY Qty: 1 0RF Rx Instructions: Folding Front wheeled walker amoxicillin 500 mg tablet 2,000 mg PO ONCE 1 Days Qty: 4 0RF acetaminophen [Tylenol] 325 mg tablet 325 mg PO QID Qty: 30 0RF methocarbamol 750 mg tablet 1,500 mg PO Q8H PRN (Reason: pain, moderate) Qty: 20 0RF methylprednisolone [Medrol (Zurdo)] 4 mg tablets,dose pack 4 mg PO QAM Qty: 21 0RF Rx Instructions: Take per package instructions ketorolac 10 mg tablet 10 mg PO Q6H PRN (Reason: pain) Qty: 20 0RF Rx Instructions: maximum total duration of 5 days from all oral, intranasal, or parenteral formulations. The patient intramuscular dose of Toradol here in the emergency department dexamethasone 2 mg tablet 2 mg PO BID Qty: 10 0RF methocarbamol 750 mg tablet 750 mg PO TID PRN (Reason: muscle spasm) Qty: 20 0RF naproxen 500 mg tablet 500 mg PO BID PRN (Reason: pain) 7 Days Qty: 14 0RF Rx Instructions: Take with food. ibuprofen 800 mg tablet 800 mg PO TID PRN (Reason: pain) Qty: 90 1RF Print Language: Swedish
--- OUTSIDE RECORDS SUMMARY | 2025-06-30 22:55 | XMS_ITS | Clinical Summary ---
Author Organization [employer] [facility] ity Address [address] [place] [address] Care Team Providers Care Tariff Compiling Clerk Name Role Phone Unavailable Primary Care Provider [...] Panel) 06/05/2024 Colorectal Cancer Screening: Colonoscopy 06/05/2024 HIV Screening 06/05/2024 Hepatitis C Screening 06/05/2024 Social Influencers of Health Screening 06/05/2024 COVID-19 Vaccine ( - 2023-2 5 season) 2024 Depression Screening 11/04/2024 Influenza Vaccine (#1) 2025 HIB Vaccines Aged Out No longer eligi [...] age to complete this topic Meningococcal B Vaccine Aged Out No l onger eligible based on patient's age to complete this topic Pneumococcal Vaccine: Pediat rics (0 to 5 Years) and At-Risk Patients (6 to 49 Years) Aged Out No longer eligible b ased on patient's age to complete this topic RSV Immunization Patients Un divina 20 months Aged Out No longer eligible b ased on patient's age to complete this topic Varicella Vaccines Aged Out No longer eligible based on patient's age to complete this topic
--- OUTSIDE RECORDS SUMMARY | 2025-06-30 22:55 | XMS_ITS | Clinical Summary ---
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 Dental caries 11/19/2023 Social History Tobacco Use Types Packs/Day Years [...] Panel 1977 SDOH Screening 1977 Sigmoidoscopy 1977 Disability Screening 1977 Alcohol/Substance Use Screening 1989 Family Planning (PISQ) 1992 Hepatitis C Screening 1995 DTaP/Tdap/Td Vaccines (1 - Tdap) 1996 Hepatitis B Vaccines (1 of 3 - 19+ 3-dose series) 1996 COVID-19 Vaccine ( - 2023-2 5 season) 2024 Dental Oral Exam 03/22/2025 09/21/2024 Influenza Vaccine (#1) 2025 Tobacco Screening 07/27/2025 07/27/2024 Dental X-Ray: Bitewings 09/22/2025 09/21/20 24, 05/21/2024 Dental X-Ray: Full Mouth 09/22/2027 [...] Years) and At-Risk Patients (6 to 49) Years Aged Out No longer eligible b ased on patient's age to complete this topic RSV under 20 months Aged Out No longe r eligible based on patient's age to complete this topic Rotavirus Vaccines Aged Out No longer eligible based on patient's age to complete this topic Procedures Procedure Name Priority Date/Time Associated Diagnosis Comments INTRAORAL - COMPLETE SERIES OF RADIOGRAPHIC IMAGES Routine 09/21/2024 8:00 AM EST Fracture of root of tooth Advanced periodontitis Dental calculus Retained dental root Impacted third molar tooth Gingival bleeding PERIODIC ORAL EVALUATION - ESTABLISHED PATIENT Routine 09/21/2024 8:00 AM EST from Last 3 Months or Most Recently Relevant to Health Maintenance Insurance [place] AD[place]
[2025-07-01 00:39] VITALS: BP 147/89; PULSE 69; RESP 16; TEMP 36.6; O2SAT 98
== END 2025-07-01 00:40 | disposition home or self-care (01) ==
PROVIDERS: Emergency Provider Emergency Medicine
DX: L29.9 Pruritus, unspecified (principal)
CPT/HCPCS: 99282; 99283

== ENCOUNTER 2025-07-14 13:53 | Outpatient (AMB) | payer MEDICAID, SELFPAY ==
--- NOTE | 2025-07-14 14:05 | A.OFFVIS_ITS ---
Vital Signs 07/14/25 14:07 Height 5 ft 1 in Weight 169 lb BMI 31.9 Intake Visit Reasons: OV-right rotator cuff tear Intake Note: Jovany is a 49 year old male who presents today for a follow up of right rotator cuff tear. At his last visit on 01/28/[address] Hayden patient was given a cortisone injection, he was to attend physical therapy and a prescription of ibuprofen was sent to pharmacy. Patient reports injection did provide him with some relief. He continues to have pain and would like to discuss other treatment options. 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 He was not able to attend physical therapy. Lithographic Plate Maker Name: Hardy ID#[id number] Allergies No Known Allergies Allergy (Verified 07/14/25 14:07) HPI HPI OV-right rotator cuff tear: Details: 49-year-old gentleman returns to the office today for a follow-up right shoulder pain. He saw Dr. Hayden in January of 2025 where he had an injection then was given anti-inflammatories for his discomfort. The patient states there was some minimal discomfort however once the injection wore off he continued to have discomfort with daily activities especially work. [facility] Medical History Avascular necrosis of bone of right hip No pertinent past medical history Surgical History Hx of appendectomy History of surgery on left wrist Social History (Updated 07/14/25 @ 14:09 by SP Israel) Household Members: Other Housing: Apartment Are you a primary director day care center to a significant other at home: No Do you presently have visiting nurse or other home services: No Alcohol intake: never Patient Tobacco Use Status: Never used Tobacco Second Hand Smoke Exposure: No Advance Directives Date on File: 06/28/23 service: No Current occupational status: employed 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 Pain with Bearden. He has discomfort with supraspinatus and external rotation rotator cuff testing. Assessment & Plan Assessment & Plan (1) Right rotator cuff tear: Code(s): M75.101 - Unspecified rotator cuff tear or rupture of right shoulder, not specified as traumatic Category: Medical Plan: The patient feels as though he has tried all nonoperative treatment options and continues to have significant limitations with daily activities especially work. He would like to discuss whether or not he is a surgical candidate. I explained I will review this with Dr. Hayden and contact him to discuss his recommendations. Coding Level of Care Code Est Pt Level 3 (59500) Complex EM visit Add On G2211 Diagnoses Right rotator cuff tear M75.101
[2025-07-14 14:07] VITALS: BMI 31.9
--- OUTSIDE RECORDS SUMMARY | 2025-07-14 16:59 | XMS_ITS | Clinical Summary ---
Author Organization [facility] ity Address [address] [place] [address] Care Team Providers Care Power Nut Runner Operator Name Role Phone Unavailable Primary Care [...] 06/05/2024 Social Influencers of Health Screening 06/05/2024 Depression Screening 11/04/2024 COVID-19 Vaccine (2023-2 5 season) 2025 Influenza Vaccine (#1) 2025 HIB Vaccines Aged [...]
--- OUTSIDE RECORDS SUMMARY | 2025-07-14 16:59 | XMS_ITS | Clinical Summary ---
Author Organization [employer] [facility] Address [address] [place] [address] Care Team Providers Care Supervisor Roller Shop Name Role Phone Unavailable Primary Care Provider [...] of 3 - 19+ 3-dose series) 1996 Dental Oral Exam 03/22/2025 09/21/2024 COVID-19 Vaccine (1 - 2023-2 5 season) 2025 Influenza Vaccine (#1) 2025 Tobacco Screening 07/27/2025 [...]
== END 2025-07-14 14:30 | disposition home or self-care (01) ==
LOC: HO.HOS 13:53
PROVIDERS: Visit Provider Physician Assistant
DX: M75.101 Unspecified rotator cuff tear or rupture of right shoulder, not specified as traumatic (principal)
CPT/HCPCS: 99213

== ENCOUNTER → 2025-07-14 13:53 | Outpatient (BNVA) | payer OTHER, SELFPAY | PROVIDERS: Visit Provider Physician Assistant | DX: M75.101 Unspecified rotator cuff tear or rupture of right shoulder, not specified as traumatic (principal) | CPT/HCPCS: 99212 ==

== ENCOUNTER 2025-07-22 14:51 | Emergency (ER) | payer OTHER, SELFPAY ==
[2025-07-22 15:10] VITALS: BP 138/84; PULSE 87; RESP 18; TEMP 36.9; O2SAT 95; BMI 28.5
--- NOTE | 2025-07-22 15:13 | ED.UPPEXIN ---
HPI - Extremity Injury (Upper) General Chief Complaint: Extremity Injury, Upper Stated Complaint: r shoulder pain work related Time Seen by Provider: 07/22/25 15:17 Source: patient, RN notes reviewed and breaker hand Mode of arrival: ambulatory Limitations: language barrier History of Present Illness ED Provider: Krista Fuentes PA-C HPI narrative: This is a 49-year-old male who presents emergency department with complaints of chronic right shoulder pain. He has been followed by Orthopedics, was told he had a rotator cuff tear in his awaiting follow-up with Orthopedics, to see if he is eligible for surgery. He states that he has been taking ibuprofen and Tylenol however states that he can not handle the pain anymore. He denies any new injury or trauma. No chest pain or shortness for breath. No other complaints or concerns at this. MD complaint: injury to: right and shoulder Associated symptoms: denies other symptoms Related Data Previous Rx's ?Medication ?Instructions ?Recorded walker #1 ea 05/22/23 acetaminophen 325 mg tablet 325 mg PO QID #30 tabs 09/10/24 (Tylenol) amoxicillin 500 mg tablet 2,000 mg (4 x 500 mg) PO ONCE take 09/15/24 4 tabs by mouth 1 hour prior to dental ppx 1 day #4 tabs ibuprofen 800 mg tablet 800 mg PO TID PRN pain #90 tabs 01/28/25 ketorolac 10 mg tablet 10 mg PO Q6H PRN pain #20 tabs 02/02/25 methocarbamol 750 mg tablet 1,500 mg (2 x 750 mg) PO Q8H PRN 02/02/25 pain, moderate #20 tabs methylprednisolone 4 mg tablets in 4 mg PO QAM #21 ea 02/02/25 a dose pack (Medrol (Zurdo)) dexamethasone 2 mg tablet 2 mg PO BID #10 tabs 05/17/25 methocarbamol 750 mg tablet 750 mg PO TID PRN muscle spasm #20 05/17/25 tabs naproxen 500 mg tablet 500 mg PO BID PRN pain 7 days #14 05/17/25 tabs diphenhydramine HCl 25 mg capsule 25 mg PO TID PRN itching #30 caps 07/01/25 (Benadryl) prednisone 20 mg tablet 20 mg PO BID #10 tabs 07/01/25 acetaminophen 500 mg tablet 1,000 mg (2 x 500 mg) PO Q8H PRN 07/22/25 (Tylenol Extra Strength) pain #30 tabs cyclobenzaprine 10 mg tablet 10 mg PO TID PRN muscle spasm #30 07/22/25 tabs ibuprofen 600 mg tablet 600 mg PO Q6H PRN pain #30 tabs 07/22/25 prednisone 20 mg tablet 40 mg (2 x 20 mg) PO DAILY 5 days 07/22/25 #10 tabs Allergies Allergy/AdvReac Type Severity Reaction Status Date / Time No Known Allergies Allergy Verified 07/22/25 15:12 Review of Systems Review of Systems: Constitutional : No Fever, No Chills ENT/Mouth : No sore throat, No Rhinorrhea Eyes: No Eye Pain, No Swelling, No Redness Cardiovascular : No Chest Pain, No SOB Respiratory : No Cough, No Sputum Gastrointestinal : No Nausea, No Vomiting, No Diarrhea, No abdominal Pain Genitourinary : No Dysuria, No Hematuria Musculoskeletal : +joint pain, No Myalgias, No Joint Swelling Skin : No Skin Lesions Neuro : No Weakness, No Numbness, No Headache All other systems reviewed and are negative Yes all other systems are reviewed and are negative Constitutional: Constitutional: Reports as per [facility] Past Medical History Medical History Avascular necrosis of bone of right hip No pertinent past medical history Surgical History Hx of appendectomy History of surgery on left wrist Social History Social History (Updated 07/14/25 @ 14:09 by SP Israel) Household Members: Other Housing: Apartment Are you a primary manager of care to a significant other at home: No Do you presently have visiting nurse or other home services: No Alcohol intake: never Patient Tobacco Use Status: Never used Tobacco Second Hand Smoke Exposure: No Advance Directives: Yes Advance Directives on File: Yes Advance Directives Date on File: 06/28/23 service: No Current occupational status: employed 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 No acute distress. HEENT: Normal inspection CVS: Normal heart rate and rhythm. Pulses normal. Respiratory: No respiratory distress Skin: Warm, dry, no rashes noted to exposed skin. Normal skin color. Normal skin turgor. Extremities: Right shoulder with no obvious bony deformity or swelling. He has tenderness palpation along the bicipital groove. Pain with abduction and adduction, as well as internal rotation. Strong radial pulse. No overlying skin changes or warmth. Neuro: Oriented X 3. No motor deficit. No sensory deficit. Vital Signs: Vital Signs: Last Vital Signs Temp 98.4 F 07/22/25 15:46 Pulse 87 07/22/25 15:46 Resp 18 07/22/25 15:46 BP 138/84 07/22/25 15:46 Pulse Ox 95 07/22/25 15:46 O2 Del Method Room Air 07/22/25 15:46 BMI result Body Mass Index 28.5 Medications Administered Discontinued Medications Generic Name Dose Route Start Last Admin Trade Name Freq PRN Reason Stop Dose Admin Ketorolac Tromethamine 30 mg 07/22/25 15:17 07/22/25 15:38 Ketorolac Tromethamine 30 Mg/Ml Vial IM 07/22/25 15:18 30 mg ONCE ONE Administration Medical Decision Making Medical Decision Making [facility] Narrative: This is a 49-year-old male who presents emergency department with concerns of right shoulder pain. Symptoms consistent with rotator cuff injury. On arrival, vital signs within normal limits, he is speaking full sentences under no acute distress. No need for reimaging. Will treat with Toradol, discharged on ibuprofen and Tylenol. Given strict return precautions. Urged the importance of following up with orthopedics. He understands and agrees with plan. Patient stable for discharge. Differential Diagnosis Differential Diagnoses: The differential diagnosis associated with the presentation includes Rotator cuff injury, sprain, strain, contusion, fracture, dislocation Discharge Plan Discharge Clinical Impression: Right rotator cuff tear, Chronic pain in right shoulder Patient Disposition: Home, Self-Care Instructions: Shoulder Pain (ED) Additional Instructions: You were seen in the emergency department due to right shoulder pain. You were given a dose of Toradol in the department today. Prednisone as an anti-inflammatory, this may help with your pain. Continue taking ibuprofen and or Tylenol as needed for pain and symptoms. Ibuprofen 600 mg every 6 hours, do not take this until tomorrow. Tylenol a 1000 mg every 8 hours as needed for pain. Flexeril as a muscle relaxants, this can cause drowsiness, do not drink alcohol or drive while taking this medication. Follow-up with the head orthopedic team physician. If any new or worsening symptoms occur including but not limited to worsening pain, fevers, chills, chest pain, shortness of breath, please seek emergent care. Prescriptions: New ibuprofen 600 mg tablet 600 mg PO Q6H PRN (Reason: pain) Qty: 30 0RF cyclobenzaprine 10 mg tablet 10 mg PO TID PRN (Reason: muscle spasm) Qty: 30 0RF acetaminophen [Tylenol Extra Strength] 500 mg tablet 1,000 mg PO Q8H PRN (Reason: pain) Qty: 30 0RF prednisone 20 mg tablet 40 mg PO DAILY 5 Days Qty: 10 0RF No Action (DME) walker Misc See Rx Instructions .MEDSUPPLY Qty: 1 0RF Rx Instructions: Folding Front wheeled walker amoxicillin 500 mg tablet 2,000 mg PO ONCE 1 Days Qty: 4 0RF acetaminophen [Tylenol] 325 mg tablet 325 mg PO QID Qty: 30 0RF methocarbamol 750 mg tablet 1,500 mg PO Q8H PRN (Reason: pain, moderate) Qty: 20 0RF methylprednisolone [Medrol (Zurdo)] 4 mg tablets,dose pack 4 mg PO QAM Qty: 21 0RF Rx Instructions: Take per package instructions ketorolac 10 mg tablet 10 mg PO Q6H PRN (Reason: pain) Qty: 20 0RF Rx Instructions: maximum total duration of 5 days from all oral, intranasal, or parenteral formulations. The patient intramuscular dose of Toradol here in the emergency department dexamethasone 2 mg tablet 2 mg PO BID Qty: 10 0RF methocarbamol 750 mg tablet 750 mg PO TID PRN (Reason: muscle spasm) Qty: 20 0RF naproxen 500 mg tablet 500 mg PO BID PRN (Reason: pain) 7 Days Qty: 14 0RF Rx Instructions: Take with food. prednisone 20 mg tablet 20 mg PO BID Qty: 10 0RF diphenhydramine HCl [Benadryl] 25 mg capsule 25 mg PO TID PRN (Reason: itching) Qty: 30 0RF ibuprofen 800 mg tablet 800 mg PO TID PRN (Reason: pain) Qty: 90 1RF Referrals: [facility] [Provider Group] Interventions: ED Discharge Assessment Last Done: 07/22/25 15:46 Discharge Date/Time: 07/22/25 15:46 Print Language: Kazakh
[2025-07-22 15:46] VITALS: BP 138/84; PULSE 87; RESP 18; TEMP 36.9; O2SAT 95
--- OUTSIDE RECORDS SUMMARY | 2025-07-22 16:51 | XMS_ITS | Clinical Summary ---
Author Organization [employer] [facility] Address [address] [place] [address] Care Team Providers Care Tectonophysicist Name Role Phone Unavailable Primary Care Provider [...]
--- OUTSIDE RECORDS SUMMARY | 2025-07-22 16:51 | XMS_ITS | Clinical Summary ---
Author Organization [employer] [facility] ity Address [address] [place] [address] Care Team Providers Care Assistive Technology Trainer Name Role Phone Unavailable Primary Care Provider [...]
== END 2025-07-22 15:46 | disposition home or self-care (01) ==
PROVIDERS: Emergency Provider Emergency Medicine
DX: M75.101 Unspecified rotator cuff tear or rupture of right shoulder, not specified as traumatic (principal); G89.29 Other chronic pain
CPT/HCPCS: 96372; 99283; 99284; J1885

== ENCOUNTER 2025-08-11 08:56 | Day surgery (SDC) | payer OTHER, SELFPAY ==
[2025-08-02 08:17] VITALS: BMI 31.9
--- NOTE | 2025-08-09 14:38 | HO.ANESPROP2 ---
Documented by User: Tesha Calderon NP 08/09/25 14:39 HPI - Anesthesia Eval Consult details Narrative: 49 yr old male for right Arthroscopic Rotator Cuff Repair PMFSH Active Problems Active Problems: All Active Problems (Updated 07/23/25 @ 00:00 by Johana Sheffield) Partial thickness rotator cuff tear (Acute) Right rotator cuff tear (Acute) Impingement syndrome of right shoulder (Acute) COVID-19 (Acute) Status post total replacement of right hip (Acute) Osteoarthritis of right hip (Acute) Avascular necrosis of bone of right hip (Acute) Past Medical History Medical History Avascular necrosis of bone of right hip No pertinent past medical history Family History Family history of problems with anesthesia: No Surgical History Surgical History History of total hip replacement Hx of appendectomy History of surgery on left wrist History of Problems with Anesthesia: No Social History Social History Household Members: Other Housing: Apartment Are you a primary hospice patient care secretary to a significant other at home: No Do you presently have visiting nurse or other home services: No Alcohol intake: never Patient Tobacco Use Status: Former Tobacco user Second Hand Smoke Exposure: No Use of substances other than those prescribed or required for medical reasons: No Are you DNR?: No Advance Directives: Yes Advance Directives on File: Yes Advance Directives Date on File: 06/28/23 Poor oral hygiene: No service: No Current occupational status: employed 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, 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 Meds Allergies Allergy/AdvReac Type Severity Reaction Status Date / Time No Known Allergies Allergy Verified 07/22/25 15:12 Exam Height,Weight and Vital Signs: Height 5 ft 1 in Weight 76.657 kg Assessment and Plan Final Anesthetic Review Family History of Problems with Anesthesia: No History of Problems with Anesthesia: No Documented by User: Monalisa Naik MD 08/11/25 10:58 PMFSH Past Medical History Medical History Avascular necrosis of bone of right hip No pertinent past medical history Surgical History Surgical History History of total hip replacement Hx of appendectomy History of surgery on left wrist Social History Social History Household Members: Other Housing: Apartment Are you a primary hospice patient care secretary to a significant other at home: No Do you presently have visiting nurse or other home services: No Alcohol intake: never Patient Tobacco Use Status: Former Tobacco user Second Hand Smoke Exposure: No Use of substances other than those prescribed or required for medical reasons: No Are you DNR?: No Advance Directives: Yes Advance Directives on File: Yes Advance Directives Date on File: 06/28/23 Poor oral hygiene: No service: No Current occupational status: employed 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 and Plan Disposition: Standard PACU
[2025-08-11 09:08] VITALS: BMI 34.2
[2025-08-11 09:11] VITALS: BP 116/81; PULSE 67; RESP 16; TEMP 36.4; O2SAT 98
[2025-08-11] MEDS: Lactated Ringers 1,000 ML 100 ML IVCONT (09:46)
--- NOTE | 2025-08-11 13:39 | MHC.SHP ---
Pre-Procedural Eval Section A - 24 Hr Update-Section A only Date of Service: 08/11/25 The patient is an INPATIENT: No Changes since office visit: No Cold of Flu in the past 2 weeks, No New Medical Problems, No Changes in Medication and No Patient answered all questions The patient has been examined within 24 hours of the surgical procedure. The History & Physical has been completed within 30 days and I have reviewed it.: Yes Section B - Complete if H&P > 30 days Chief Complaint: Complete rotator cuff tear or rupture of right Allergies: Allergies Allergy/AdvReac Type Severity Reaction Status Date / Time No Known Allergies Allergy Verified 07/22/25 15:12 Plan I have reviewed the history and physical and performed a pertinent physical examination on my patient. No changes have occurred unless specified. Time Spent With Patient Time: Total time managing care of this patient today ____ minutes.
[2025-08-11 15:10] VITALS: BP 113/67; PULSE 67; RESP 18; TEMP 36.1; O2SAT 95
[2025-08-11 15:15] VITALS: BP 104/63; PULSE 66; RESP 16; O2SAT 96
[2025-08-11 15:20] VITALS: BP 110/63; PULSE 64; RESP 16; O2SAT 97
[2025-08-11 15:25] VITALS: BP 104/64; PULSE 62; RESP 16; O2SAT 98
[2025-08-11 15:40] VITALS: BP 123/81; PULSE 70; RESP 18; TEMP 36.1; O2SAT 95
--- NOTE | 2025-08-11 16:25 | PM.OP ---
Brief Operative Note Date of Service: 08/11/25 Pre-op diagnosis: Right RTC tear Post-op diagnosis: same Procedure: Right RTC repair Implants: Khan and Nephew double row 4.75/ 5.0 Surgeon: Ifeanyi Hayden MD Anesthesia: GETA and regional Was an Business Continuity Manager used for this Procedure?: No Estimated blood loss (mL): 25 IV fluids (mL): 750 Pathology: none sent Condition: stable Disposition: PACU
--- NOTE | 2025-08-13 14:58 | W.PM.OPN ---
Operative Note Operative Note Date of Service: 08/11/25 Narrative: Date of Service: 08/11/25 Pre-op diagnosis: Right RTC tear Post-op diagnosis: same Procedure: Right RTC repair Implants: Khan and Nephew double row 4.75/ 5.0 Surgeon: Ifeanyi Hayden MD Anesthesia: GETA and regional Was an Emergency Room Tech used for this Procedure?: No Estimated blood loss (mL): 25 IV fluids (mL): 750 Pathology: none sent Condition: stable Disposition: PACU Procedure in detail: Patient was brought to the operating room and placed the the beach chair position. All bony prominences were well padded and the limb was prepped and draped in standard sterile fashion. A time out was called to identify proper site, proper procedure and proper surgeon. IV antibiotics per weight were administered. I began by making a posterolateral stab incision with a 15 blade. A blunt trochar was placed into the glenohumeral joint and I insufflated the joint with saline and a 30 degree arthroscope was placed. The GH joint appeared normal. No cartilage changes. Biceps and labrum were intact. Subscapularis was intact. There was afull thickness tear of the supraspinatus. I then removed the trochar and entered the subacromial space. A direct lateral portal was then established and I performed a bursectomy. The cuff was then examined. There was a full thickness tear of the supraspinatus without retraction. A 2nd lateral portal was established. The tear was mobile. I made a superior stab incision and I placed two medial row double loaded anchors after using a tap just adjacent to the articular cartilage and then brought the suture limbs (4) through the medial cuff. The suture tapes were used only. I placed a looped luggage handle suture at the posterior and anterior aspects of the tear. I then debrided the bare area down to bleeding bone and, using a cross bridge configuration, brought 3 limbs to each of two lateral 5.0 anchors. This re-approximated the cuff anatomy anatomically. I performed a 5 mm subacromial decompression using a oval bur. Once I was satisfied with the repair my final images were captured and I removed all instrumentation. Portals were closed with nylon. Patient was placed in an abduction sling, extubated and brought to the recovery room in stable condition. There were no known complications.
== END 2025-08-11 15:48 | disposition home or self-care (01) ==
LOC: HO.SSS 08:56
PROVIDERS: Visit Provider Orthopaedic Surgery
PROC: (CPT 29827; principal; 2025-08-11 12:30)
DX: M75.121 Complete rotator cuff tear or rupture of right shoulder, not specified as traumatic (principal); M25.511 Pain in right shoulder; Z96.641 Presence of right artificial hip joint; Z98.890 Other specified postprocedural states
CPT/HCPCS: 29827; 29826; C1713; J0131; J0165; J0665; J0690; J1100; J2003; J2250; J2405; J2704; J2795; J3010

== ENCOUNTER → 2025-08-11 08:56 | Outpatient (BNV) | payer OTHER, SELFPAY | PROVIDERS: Visit Provider Orthopaedic Surgery | DX: M75.121 Complete rotator cuff tear or rupture of right shoulder, not specified as traumatic (principal) | CPT/HCPCS: 29827 ==

== ENCOUNTER 2025-08-19 09:44 | Outpatient (AMB) | payer OTHER, SELFPAY ==
--- NOTE | 2025-08-19 09:51 | A.OFFVIS_ITS ---
Intake Visit Reasons: PO RT RTC 08/11/25 NE Intake Note: Jovany is a 49 year old male who presents today for a post operative appointment status post right shoulder rotator cuff repair done on 08/11/[address] Hayden. Patient reports he is doing well. Allergies No Known Allergies Allergy (Verified 08/19/25 10:00) HPI HPI PO RT RTC 08/11/25 NE: Details: Mr. Alicia clement is a 49-year-old male who presents to the office today status post right shoulder rotator cuff repair on 08/11/[address] Hayden. He presents to the office today in the abduction sling. He has not started phys ical therapy yet. He reports pain is managed. No additional complaints. [facility] Medical History Avascular necrosis of bone of right hip No pertinent past medical history Surgical History History of total hip replacement Hx of appendectomy History of surgery on left wrist Social History Household Members: Other Housing: Apartment Are you a primary post acute care nurse practitioner to a significant other at home: No Do you presently have visiting nurse or other home services: No Alcohol intake: never Comment: counts correct Patient Tobacco Use Status: Former Tobacco user Second Hand Smoke Exposure: No Advance Directives Date on File: 06/28/23 service: No Current occupational status: employed 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 No surrounding erythema or drainage. No signs of infection. Forward flexion abduction to 45 degrees. NVI. Psych Appearance: grossly normal Mental Status: mental status grossly normal Attitude: cooperative Assessment & Plan Assessment & Plan (1) Status post right rotator cuff repair: Code(s): Z98.890 - Other specified postprocedural states Category: Surgical Plan Mr. Alicia clement is a 49-year-old male who presents to the office today status p ost right shoulder rotator cuff repair on 08/11/[address] Hayden. He presents to the office today in the abduction sling. He has not started physical therapy yet. He reports pain is managed. No additional complaints. While the office today, sutures are removed and Steri-Strips were applied. He was placed back into the abduction sling. He will remain in the abduction sling for roughly 6 weeks postoperatively. I have sent a refill of oxycodone 5 mg p.o. q.4-6 hours # 42 tabs to the pharmacy while the office today. I have recommended the patient begin physical therapy as soon as possible. Physical therapy has been placed while in the office today and instruction has been given to the patient to reach out to the physical therapy office to schedule an appointment. Physical therapy business card was also provided to the patient while the office today. He will follow up in [address] Hayden, sooner if needed. Medications: Refilled oxycodone Partial Fill upon patient request. 5 mg PO Q4-6H PRN 42 tabs 0RF pain (scale score 4-6) 7 days Coding Level of Care Code Global (98518) Diagnoses Status post right rotator cuff repair Z98.890
--- OUTSIDE RECORDS SUMMARY | 2025-08-19 11:18 | XMS_ITS | Clinical Summary ---
Author Organization [employer] [facility] Address [address] [place] [address] Care Team Providers Care Well Logger Name Role Phone Unavailable Primary Care Provider [...]
--- OUTSIDE RECORDS SUMMARY | 2025-08-19 11:18 | XMS_ITS | Clinical Summary ---
Author Organization [facility] [facility] ity Address [address] [place] [address] Care Team Providers Care Account Service Representative Name Role Phone Unavailable Primary Care Provider Unavailabl e Social History Tobacco Use Types Packs/Day Years Used Date Smoking Tobacco: Never Assessed Sex and Gender Information Value Date Recorded Sex Assigned at Not on file Legal Sex Male 1:37 PM EDT Gender Identity Not on file Sexual Orientation Not on file Plan of Treatment Health Maintenance Due Date Last Done Comments Colorectal Cancer Screening: Colonoscopy 1977 DTaP,Tdap,and Td Vaccines (1 - Tdap) 1996 Hepatitis B Vaccines (1 of 3 - 19+ 3-dose series) 1996 Cholesterol Screening (Lipid Panel) 06/05/2024 HIV Screening 06/05/2024 Hepatitis C Screening 06/05/2024 Social Influencers of Health Screening 06/05/2024 Depression Screening 11/04/2024 COVID-19 Vaccine ( - 2023-2 5 season) 2025 Influenza Vaccine (#1) 2025 RSV Immunization Adult Patie nts (1 - 1-dose 75+ series) 2052 HIB [...]
== END 2025-08-19 10:29 | disposition home or self-care (01) ==
LOC: HO.HOS 09:44
PROVIDERS: Visit Provider Physician Assistant
DX: Z98.890 Other specified postprocedural states (principal)
CPT/HCPCS: 99024

== ENCOUNTER → 2025-08-19 09:44 | Outpatient (BNVA) | payer OTHER, SELFPAY | PROVIDERS: Visit Provider Physician Assistant | DX: M25.511 Pain in right shoulder (principal); Z98.890 Other specified postprocedural states | CPT/HCPCS: 99212 ==

== ENCOUNTER 2025-09-27 09:47 | Outpatient (AMB) | payer OTHER, MEDICAID, SELFPAY ==
--- NOTE | 2025-09-27 09:49 | A.OFFVIS_ITS ---
Vital Signs 09/27/25 09:51 Height 5 ft 9.69 in Weight 171 lb 15.369 oz BMI 24.9 Intake Visit Reasons: PO RT RTC 08/11/25 NE Intake Note: Jovany is a 49 year old 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 male who presents today for a Post Operative appointment about 5 weeks s/p Right RTC Repair 08/11/25. Patient reports that he is having some mild pain in the right shoulder, and has noticed mild numbness and tingling in the right hand since surgery.He is not taking any medication for pain. Allergies No Known Allergies Allergy (Verified 08/19/25 10:00) HPI HPI PO RT RTC 08/11/25 NE: Details: Jovany is a 49 year old 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 male who presents today for a Post Operative appointment about 5 weeks s/p Right RTC Repair 08/11/25. Patient reports that he is having some mild pain in the right shoulder. He is not taking any medication for pain but does have some pain at night that is bothersome. Overall he feels good. He is doing his physical therapy. [facility] Medical History Avascular necrosis of bone of right hip No pertinent past medical history Surgical History History of total hip replacement Hx of appendectomy History of surgery on left wrist Social History Household Members: Other Housing: Apartment Are you a primary day care home provider to a significant other at home: No Do you presently have visiting nurse or other home services: No Alcohol intake: never Comment: counts correct Patient Tobacco Use Status: Former Tobacco user Second Hand Smoke Exposure: No Advance Directives Date on File: 06/28/23 service: No Current occupational status: employed 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 External rotation to 45 degrees. Passive abduction to 90. Vital Signs: BMI result Body Mass Index 24.9 Assessment & Plan Assessment & Plan (1) Status post right rotator cuff repair: Code(s): Z98.890 - Other specified postprocedural states Category: Surgical Plan: Status post right rotator cuff repair doing well. Continue physical therapy and follow up in 6 weeks. Refilled pain pills her last time. Medications: Changed From oxycodone Partial Fill upon patient request. 5 mg PO Q4-6H 7 days PRN 42 tabs 0RF pain (scale score 4-6) To oxycodone Partial Fill upon patient request. 5 mg PO BID PRN 30 tabs 0RF pain (scale score 4-6) 15 days Coding Level of Care Code Global (93870) Diagnoses Status post right rotator cuff repair Z98.890
[2025-09-27 09:51] VITALS: BMI 24.9
--- OUTSIDE RECORDS SUMMARY | 2025-09-27 11:32 | XMS_ITS | Clinical Summary ---
Author Organization [employer] Document Preparation [facility] Address [address] [place] [address] [address] [place] [address] Care Team Providers Care Marketing Services Coordinator Name Role Phone Unavailable Primary Care Provider [...] Exam 03/22/2025 09/21/2024 COVID-19 Vaccine (1 - 2024-2 6 season) 2025 Influenza Vaccine (#1) 2025 Tobacco [...]
--- OUTSIDE RECORDS SUMMARY | 2025-09-27 11:32 | XMS_ITS | Clinical Summary ---
Author Organization [employer] [facility] ity Address [address] [place] [address] Care Team Providers Care Internal Medicine Veterinary Technician Name Role Phone Unavailable Primary Care Provider [...] Depression Screening 11/04/2024 COVID-19 Vaccine ( - 2024-2 6 season) 2025 Influenza Vaccine (#1) 2025 RSV [...]
== END 2025-09-27 10:23 | disposition home or self-care (01) ==
LOC: HO.HOS 09:48
PROVIDERS: Visit Provider Orthopaedic Surgery
DX: Z98.890 Other specified postprocedural states (principal)
CPT/HCPCS: 99024

== ENCOUNTER → 2025-09-27 09:47 | Outpatient (BNVA) | payer OTHER, SELFPAY | PROVIDERS: Visit Provider Orthopaedic Surgery | DX: Z47.89 Encounter for other orthopedic aftercare (principal); Z98.890 Other specified postprocedural states | CPT/HCPCS: 99212 ==